=== PATIENT | male | born 1945 | race Caucasian/White ===

== ENCOUNTER 2024-02-23 12:05 | Emergency (ER) | payer MEDICARE, OTHER, SELFPAY ==
[2024-02-23 12:10] VITALS: BP 147/88; PULSE 78; RESP 18; TEMP 36.4; O2SAT 97
--- NOTE | 2024-02-23 12:55 | ED_ITS ---
HPI - Extremity Problem General Chief complaint: Extremity Problem,Nontraumatic Stated complaint: right foot infection Time Seen by Provider: 02/23/24 12:31 History of Present Illness HPI Narrative: 78-year-old male with history of diabetes, hypertension high cholesterol, renal cell carcinoma with partial left nephrectomy in 2007 an AL in 2009 presents emergency department for evaluation for worsening right foot erythema. Patient states approximately a week ago he had worsening CT fungal infection on his feet and start using [id number] fungal medications but states that and on Tuesday he started having a burning of the skin on his foot presented to urgent care and was started on doxycycline b.i.d. along with fluconazole. Patient states he has had 7 doses of the doxycycline but is still having worsening redness of the right foot. Patient states the erythema has spread from the toes and is tracking up the dorsum of of the right foot. Patient also has an area of erythema on the right wrist that he describes as itchy. Related Data Allergies Allergy/AdvReac Type Severity Reaction Status Date / Time Penicillins Allergy Mild Other Verified 02/23/24 12:12 lisinopril Allergy Unknown Anaphylactic Verified 02/23/24 12:12 Shock Review of Systems 2 Review of Systems: All systems reviewed & are unremarkable except as noted in HPI and below Exam 2 Narrative: APPEARANCE: Well appearing, no pain, no distress, well-nourished. HEAD: normocephalic, atraumatic. EYES: PERRLA/EOMI, conjunctivae clear. NOSE: Normal no drainage NECK: Supple. No adenopathy, no masses. RESPIRATORY: Airway patent, respirations nonlabored. Clear to auscultation bilaterally, no rales, rhonchi, wheezing. CARDIOVASCULAR: Regular rate and rhythm without murmurs rubs or gallops. ABDOMINAL: Soft, nontender, nondistended, normal bowel sounds MUSCULOSKELETAL: Moves all extremities. Strength/ROM intact, No edema, No calf tenderness. NEURO: Alert. Cranial nerves II through XII intact. Good gait. Good coordination SKIN: Erythema involving the injury just areas of the right foot and on the dorsum of the right foot Course Vital Signs Vital signs: Vital Signs Temperature 97.6 F 02/23/24 12:10 Pulse Rate 78 02/23/24 12:10 Respiratory Rate 18 02/23/24 12:10 Blood Pressure 147/88 H 02/23/24 12:10 Pulse Oximetry 97 02/23/24 12:10 Oxygen Delivery Room Air 02/23/24 12:10 Temperature 97.6 F 02/23/24 12:10 Pulse Rate 78 02/23/24 12:10 Respiratory Rate 18 02/23/24 12:10 Blood Pressure 147/88 H 02/23/24 12:10 Pulse Oximetry 97 02/23/24 12:10 Oxygen Delivery Room Air 02/23/24 12:10 MDM - Extremity (Nontraumatic) MDM Narrative Medical decision making narrative: 78-year-old male presents emergency department for evaluation for worsening lower extremity erythema and concern for cellulitis on the right foot. Patient is afebrile with no leukocytosis but does have worsening erythema across the dorsum of his right foot. I did discuss admission with the patient and patient was evaluated by the hospitalist. Patient does have a at home that requires assistance and patient declined admission. Patient will be discharged home with Rocephin and Keflex. Patient was encouraged of close follow-up with primary care physician. Differential Diagnosis Differential diagnosis: Likely gout, cellulitis, superficial thrombophlebitis, deep venous thrombosis of upper extremity, lower extremity edema and deep vein thrombosis of lower extremity Lab Data 02/23/24 13:25 02/23/24 13:25 Labs: Lab Results 02/23/24 Range/Units 13:25 WBC 8.9 (4.5-10.0) K/mm3 RBC 4.95 (4.6-6.20) M/mm3 Hgb 15.9 (14.0-18.0) g/dL Hct 47.1 (42.0-52.0) % MCV 95.2 (80-100) fl MCH 32.1 (26-34) pg MCHC 33.8 (32-36) g/dl RDW 13.1 (11.5-14.5) % Plt Count 209 (150-375) k/mm3 MPV 9.7 (7.4-10.4) fl Immature Gran % (Auto) 0.3 (0-0.5) % Neut % (Auto) 65.8 (45.5-73.1) % Lymph % (Auto) 22.6 (18.3-44.2) % [place] % (Auto) 7.4 (2.6-8.5) % Eos % (Auto) 3.3 (0-4.4) % Baso % (Auto) 0.6 (0.2-1.2) % Lymph # (Auto) 2.00 (0.9-3.2) K/mm3 [place] # (Auto) 0.7 H (0.1-0.6) K/mm3 Eos # (Auto) 0.3 (0-0.3) K/mm3 Baso # (Auto) 0.1 (0.0-0.1) K/mm3 Abs Immat Gran (auto) 0.03 (0.00-0.031) K/mm3 Absolute Neuts (auto) 5.8 (1.3-6.7) K/mm3 Absolute Nucleated RBC 0.000 (0.0-0.012) K/mm3 Nucleated RBC % 0.0 (0.0-0.2) % Sodium 138 (137-145) mmol/L Potassium 4.0 (3.4-5.0) mmol/L Chloride 108 H (98-107) mmol/L Carbon Dioxide 22 (22-30) mmol/L Anion Gap 8 (4-12) mmol/L BUN 10 (9-20) mg/dL Creatinine 0.80 (0.7-1.3) mg/dL Estim Creat Clear Calc 80 ml/min Estimated GFR > 60 (59 - ) Glucose 95 (65-110) mg/dL Calcium 8.9 (8.4-10.2) mg/dL Total Bilirubin 0.8 (0.2-1.3) mg/dL AST 37 (17-59) U/L ALT 34 (6-50) U/L Alkaline Phosphatase 78 (38-126) U/L Total Protein 7.0 (6.3-8.2) g/dL Albumin 4.5 (3.5-5.1) g/dL Discharge Plan Discharge Clinical Impression: Cellulitis Patient Disposition: Home, Self-Care Condition: Stable Instructions: Antibiotic Form Additional Instructions: You were offered admission for cellulitis but preferred to be discharged home. You were treated with antibiotics in the emergency department and switched to Keflex for home. Stop taking the clindamycin and switch to Keflex. Have close follow-up with her primary care physician. If you have any worsening symptoms then please call or return to the emergency department. Patient Language: Faroese Prescriptions: New cephalexin 500 mg capsule 500 mg PO Q8H 7 Days Qty: 21 0RF Follow-up/Referrals: PHYSICIAN NOT ON STAFF,NONSTAFF [Non-Staff] -
[2024-02-23] MEDS: ceFAZolin 1 GM/NS 50 ML 1 GM/50 ML BAG IVPB (13:27)
[2024-02-23 13:36] LABS: Basophils Absolute Auto 0.1 K/mm3 (0.0-0.1); Basophils Percent Auto 0.6 % (0.2-1.2); Eosinophils Absolute Auto 0.3 K/mm3 (0-0.3); Eosinophils Percent Auto 3.3 % (0-4.4); Hematocrit 47.1 % (42.0-52.0); Hemoglobin 15.9 g/dL (14.0-18.0); Immature Granulocyte Absolute 0.03 K/mm3 (0.00-0.031); Immature Granulocyte Percent A 0.3 % (0-0.5); Lymphocytes Percent Auto 22.6 % (18.3-44.2); Mean Corpuscular HGB Conc 33.8 g/dl (32-36); Mean Corpuscular Hemoglobin 32.1 pg (26-34); Mean Corpuscular Volume 95.2 fl (80-100); Mean Platelet Volume 9.7 fl (7.4-10.4); Monocytes Absolute Auto 0.7 K/mm3 (0.1-0.6); Monocytes Percent Auto 7.4 % (2.6-8.5); Neutrophils Absolute Auto 5.8 K/mm3 (1.3-6.7); Neutrophils Percent Auto 65.8 % (45.5-73.1); Platelet Count Result 209 k/mm3 (150-375); Red Blood Count 4.95 M/mm3 (4.6-6.20); Red Cell Distribution Width 13.1 % (11.5-14.5); White Blood Count 8.9 K/mm3 (4.5-10.0)
[2024-02-23 13:47] LABS: Alanine Aminotransferase 34 U/L (6-50); Albumin Level 4.5 g/dL (3.5-5.1); Alkaline Phosphatase 78 U/L (38-126); Anion Gap 8 mmol/L (4-12); Aspartate Amino Transferase 37 U/L (17-59); Bilirubin,Total 0.8 mg/dL (0.2-1.3); Blood Urea Nitrogen 10 mg/dL (9-20); Calcium 8.9 mg/dL (8.4-10.2); Carbon Dioxide 22 mmol/L (22-30); Chloride 108 mmol/L (98-107); Estimated CRCL calculation 80 ml/min; Estimated Glomerular Filt Rate > 60; Glucose 95 mg/dL (65-110); Sodium 138 mmol/L (137-145)
--- NOTE | 2024-02-23 14:56 | PM.IMHP ---
H&P: HPI History of Present Illness Date/Time: 02/23/24 14:56 Chief Complaint: RIght foot erythema/edema. Narrative: Gurdeep Santiago is a 78 y/o male with pmh prediabetes presenting with 4-5 days of rle erythema. Initially had tinea pedis, started otc, began having erythema the following day. Had been breaking in a new pair of shoes, too small toe box with a resulting small blister at the medial right great toe. Erythema started and seen at urgent care, started on doxy. Symptoms have not improved in 4 days and are worsened. He denies fevers or chills. He presented for evaluation. On evaluation labwork is grossly unremarkable. He received a dose of ancef. A few hours later he states he is feeling improved. He states he cannot stay in the hospital overnight d/t home responsibilities. We discussed having failed o/p abx, admission would be reasonable. He prefers to explore other options. Review of Systems Review of Systems: Denies additional complaints concerns other than as listed above across 12 systems. Meds Home Medications and Allergies Home Medications ?Medication ?Instructions ?Recorded ?Confirmed ?Type cephalexin 500 mg capsule 500 mg PO Q8H 7 days #21 caps 02/23/24 Rx Allergies Allergy/AdvReac Type Severity Reaction Status Date / Time Penicillins Allergy Mild Other Verified 02/23/24 12:12 lisinopril Allergy Unknown Anaphylactic Verified 02/23/24 12:12 Shock Vital Signs Vital Signs - 24 hr 02/23/24 12:10 Temperature 97.6 F Pulse Rate 78 Respiratory Rate 18 Blood Pressure 147/88 H Pulse Oximetry 97 Oxygen Delivery Room Air Exam Narrative: GENERAL APPEARANCE: Appears to be in no acute distress. HEAD: normocephalic atraumatic EYES: PERRL, EOMI. Vision grossly intact. ENT: Hearing grossly intact, no nasal discharge NECK: Neck supple, trachea midline. CARDIAC: Normal S1/S2. Rhythm is regular. No murmurs, rubs, or gallops. No cyanosis or pallor. Extremities are warm and well perfused. LUNGS: Clear to auscultation without rales, rhonchi, wheezing or diminished breath sounds. Respirations even and unlabored. ABDOMEN: BS positive x 4 quadrants. Soft, nondistended, nontender. No guarding or rebound. MSK: No joint tenderness/swelling, fair strength in all extremities. PERIPHERAL VASCULAR: Peripheral pulses palpable. Normal perfusion, cap refill <2 seconds. No edema. NEURO: Follows commands. No focal deficits. SKIN: RIght foot with erythema of the dorsum extending to midfoot, medial great toe with small blister, no drainage. PSYCH: Stable, no paranoia or delusional thinking. H&P: Results Labs Labs: Short CBC 02/23/24 Range/Units 13:25 WBC 8.9 (4.5-10.0) K/mm3 Hgb 15.9 (14.0-18.0) g/dL Hct 47.1 (42.0-52.0) % Plt Count 209 (150-375) k/mm3 BMP 02/23/24 13:25 Sodium 138 Potassium 4.0 Chloride 108 H Carbon Dioxide 22 BUN 10 Creatinine 0.80 Glucose 95 Calcium 8.9 Liver Function 02/23/24 Range/Units 13:25 Total Bilirubin 0.8 (0.2-1.3) mg/dL AST 37 (17-59) U/L ALT 34 (6-50) U/L Alkaline Phosphatase 78 (38-126) U/L Albumin 4.5 (3.5-5.1) g/dL Assessment and Plan Assessment and plan (1) Cellulitis: Code(s): L03.90 - Cellulitis, unspecified Status: Acute Assessment and Plan: - Discussed alternatives to admission. Patient would like to trial o/p abx with change of therapy. Have discussed with ED provider, will receive 1gm rocephin IV - rx for keflex - close f/u with outpatient primary if possible. - Discussed with patient to return for any worsening or failure of treatment quickly. Discussed risks of discharge. Hospitalist [facility] Advance Care Plan I have confirmed that the patient's Advanced Care Plan is present, code status is documented, or surrogate decision maker is listed in patient medical record.: Yes Medication Reconciliation I have utilized all available resources to obtain, update and review the patients current medications (includes all prescriptions, OTC, herbals, cannabis, and nutritional supplements).: Yes
== END 2024-02-23 15:18 | disposition home or self-care (01) ==
PROVIDERS: Emergency Provider Emergency Medicine
DX: L03.115 Cellulitis of right lower limb (principal); E11.9 Type 2 diabetes mellitus without complications; I10 Essential (primary) hypertension; E78.5 Hyperlipidemia, unspecified; Z85.528 Personal history of other malignant neoplasm of kidney; I25.2 Old myocardial infarction
CPT/HCPCS: 36415; 80053; 85025; 87040; 96365; 96366; 99284; J0690

== ENCOUNTER 2024-02-24 13:01 | Observation (INO) | payer MEDICARE, OTHER, SELFPAY ==
--- NOTE | ~2024-02-24 | US_ITS ---
EXAMINATION:US venous doppler LE RT INDICATION:Calf pain. Cellulitis. TECHNIQUE: Multiple grayscale, color flow and Doppler images of the right lower extremity deep venous systems were obtained and reviewed. COMPARISON:06/09/2013 FINDINGS: The common femoral, superficial femoral and popliteal veins demonstrate normal respiratory variation, augmentation and compressibility. Color flow is also seen within the posterior tibial, pe roneal, greater saphenous and profunda veins. IMPRESSION: 1: No lower extremity deep venous thrombosis. Reviewed, dictated and finalized at location B. 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
[2024-02-24 13:07] VITALS: BP 150/82; PULSE 89; RESP 16; TEMP 36.5; O2SAT 96
[2024-02-24 13:33] LABS: Basophils Absolute Auto 0.1 K/mm3 (0.0-0.1); Basophils Percent Auto 0.7 % (0.2-1.2); Eosinophils Absolute Auto 0.1 K/mm3 (0-0.3); Eosinophils Percent Auto 1.5 % (0-4.4); Hemoglobin 15.2 g/dL (14.0-18.0); Immature Granulocyte Absolute 0.03 K/mm3 (0.00-0.031); Immature Granulocyte Percent A 0.3 % (0-0.5); Lymphocytes Absolute Auto 1.95 K/mm3 (0.9-3.2); Lymphocytes Percent Auto 21.5 % (18.3-44.2); Mean Corpuscular HGB Conc 33.8 g/dl (32-36); Mean Corpuscular Hemoglobin 31.9 pg (26-34); Mean Corpuscular Volume 94.5 fl (80-100); Mean Platelet Volume 9.4 fl (7.4-10.4); Monocytes Absolute Auto 0.5 K/mm3 (0.1-0.6); Monocytes Percent Auto 5.3 % (2.6-8.5); Neutrophils Absolute Auto 6.4 K/mm3 (1.3-6.7); Neutrophils Percent Auto 70.7 % (45.5-73.1); Platelet Count Result 190 k/mm3 (150-375); Red Blood Count 4.76 M/mm3 (4.6-6.20); Red Cell Distribution Width 13.1 % (11.5-14.5); White Blood Count 9.1 K/mm3 (4.5-10.0)
[2024-02-24 13:50] LABS: Alanine Aminotransferase 31 U/L (6-50); Albumin Level 4.1 g/dL (3.5-5.1); Alkaline Phosphatase 74 U/L (38-126); Anion Gap 5 mmol/L (4-12); Aspartate Amino Transferase 35 U/L (17-59); Bilirubin,Total 0.7 mg/dL (0.2-1.3); Blood Urea Nitrogen 9 mg/dL (9-20); Calcium 9.2 mg/dL (8.4-10.2); Carbon Dioxide 23 mmol/L (22-30); Chloride 109 mmol/L (98-107); Estimated CRCL calculation 73 ml/min; Estimated Glomerular Filt Rate > 60; Glucose 131 mg/dL (65-110); Potassium 3.9 mmol/L (3.4-5.0); Sodium 137 mmol/L (137-145)
--- NOTE | 2024-02-24 13:51 | ED_ITS ---
HPI - General Adult General Chief complaint: Extremity Problem,Nontraumatic Stated complaint: right calf discomfort/cellulitis Time Seen by Provider: 02/24/24 13:08 History of Present Illness HPI narrative: 78-year-old male returning to the emergency department for evaluation his right lower extremity cellulitis. Patient had initially been on doxycycline for multiple days and presented to the emergency department yesterday for evaluation for worsening lower extremity erythema. Patient was initially offered admission and patient was accepted by the hospitalist but then patient stated he needed to go home. Patient was treated with dose of Rocephin and switched to Keflex. Patient returned to the emergency department to be admitted. Patient states he has had worsening right calf pain. Related Data Home Medications ?Medication ?Instructions ?Recorded ?Confirmed ?Last Taken ?Type albuterol sulfate 90 mcg/actuation inhalation 02/24/24 Unknown History aerosol inhaler aspirin 81 mg tablet,delayed 81 mg PO DAILY 02/24/24 02/24/24 02/23/24 History release (Adult Aspirin Regimen) cetirizine 10 mg tablet (24Hour 10 mg PO DAILY PRN seasonal 02/24/24 02/24/24 02/23/24 History Allergy) allergies doxycycline hyclate 100 mg capsule mg 02/24/24 Unknown History ergocalciferol (vitamin D2) 1,250 02/24/24 02/23/24 History mcg (50,000 unit) capsule ketoconazole 2 % topical cream applic topical 02/24/24 02/24/24 History losartan 25 mg tablet mg 02/24/24 02/23/24 History methocarbamol 750 mg tablet mg 02/24/24 Unknown History rosuvastatin 20 mg tablet mg 02/24/24 02/23/24 History Allergies Allergy/AdvReac Type Severity Reaction Status Date / Time Penicillins Allergy Mild Other Verified 02/23/24 12:12 lisinopril Allergy Unknown Anaphylactic Verified 02/23/24 12:12 Shock Review of Systems 2 Review of Systems: All systems reviewed & are unremarkable except as noted in HPI and below PMFSH Social History Social History Smoking status: Former smoker Tobacco type: cigarettes Smoking end date: 03/07/98 Alcohol intake: current Substance use: never Do You Feel Safe in your Home?: Yes Lack of Transportation: No Lack of Food: Never True Current Housing: I Have Housing Concerned About Future Housing: No Difficulty Paying Gas/Electric Bills: No Difficulty Paying for Meds: No Currently Unemployed: No Education: Decline to Answer Difficulty w/ Childcare or Family Care: No Spiritual care concerns: No Exam 2 Narrative: APPEARANCE: Well appearing, no pain, no distress, well-nourished. HEAD: normocephalic, atraumatic. EYES: PERRLA/EOMI, conjunctivae clear. NOSE: Normal no drainage EARS:TMS clear with good light reflex. THROAT: Pharynx clear, no exudate. NECK: Supple. No adenopathy, no masses. RESPIRATORY: Airway patent, respirations nonlabored. Clear to auscultation bilaterally, no rales, rhonchi, wheezing. CARDIOVASCULAR: Regular rate and rhythm without murmurs rubs or gallops. ABDOMINAL: Soft, nontender, nondistended, normal bowel sounds MUSCULOSKELETAL: Moves all extremities. Strength/ROM intact, No edema, No calf tenderness. NEURO: Alert. Cranial nerves II through XII intact. SKIN: Erythema cross dorsum of right foot concerning for cellulitis Course Vital Signs Vital signs: Vital Signs Temperature 97.7 F 02/24/24 13:07 Pulse Rate 89 02/24/24 13:07 Respiratory Rate 16 02/24/24 13:07 Blood Pressure 150/82 H 02/24/24 13:07 Pulse Oximetry 96 02/24/24 13:07 Oxygen Delivery Room Air 02/24/24 13:07 Temperature 99.0 F 02/24/24 20:06 Pulse Rate 61 02/24/24 20:06 Respiratory Rate 20 02/24/24 20:06 Blood Pressure 134/67 02/24/24 20:06 Pulse Oximetry 97 02/24/24 20:06 Oxygen Delivery Room Air 02/24/24 13:07 Medical Decision Making [facility] Narrative Medical decision making narrative: 78-year-old male presents emergency department for evaluation for persistent cellulitis. Patient is afebrile with no leukocytosis and a hemoglobin of 15.2. No acute abnormalities on the patient's CMP. Ultrasound was negative for DVT. Patient was admitted for suspected cellulitis. Case was discussed with hospitalist patient was comfortable the plan for admission. Differential Diagnosis Differential Diagnosis: Allergic reaction, cellulitis, DVT, fungal infection Vital Signs Vital Signs: Vital Signs Temperature 97.7 F 02/24/24 13:07 Pulse Rate 89 02/24/24 13:07 Respiratory Rate 16 02/24/24 13:07 Blood Pressure 150/82 H 02/24/24 13:07 Pulse Oximetry 96 02/24/24 13:07 Oxygen Delivery Room Air 02/24/24 13:07 Temperature 99.0 F 02/24/24 20:06 Pulse Rate 61 02/24/24 20:06 Respiratory Rate 20 02/24/24 20:06 Blood Pressure 134/67 02/24/24 20:06 Pulse Oximetry 97 02/24/24 20:06 Oxygen Delivery Room Air 02/24/24 13:07 Lab Data Lab results reviewed: Yes I reviewed the patient's lab results. 02/24/24 13:25 02/24/24 13:25 Labs: Lab Results 02/24/24 Range/Units 13:25 WBC 9.1 (4.5-10.0) K/mm3 RBC 4.76 (4.6-6.20) M/mm3 Hgb 15.2 (14.0-18.0) g/dL Hct 45.0 (42.0-52.0) % MCV 94.5 (80-100) fl MCH 31.9 (26-34) pg MCHC 33.8 (32-36) g/dl RDW 13.1 (11.5-14.5) % Plt Count 190 (150-375) k/mm3 MPV 9.4 (7.4-10.4) fl Immature Gran % (Auto) 0.3 (0-0.5) % Neut % (Auto) 70.7 (45.5-73.1) % Lymph % (Auto) 21.5 (18.3-44.2) % [place] % (Auto) 5.3 (2.6-8.5) % Eos % (Auto) 1.5 (0-4.4) % Baso % (Auto) 0.7 (0.2-1.2) % Lymph # (Auto) 1.95 (0.9-3.2) K/mm3 [place] # (Auto) 0.5 (0.1-0.6) K/mm3 Eos # (Auto) 0.1 (0-0.3) K/mm3 Baso # (Auto) 0.1 (0.0-0.1) K/mm3 Abs Immat Gran (auto) 0.03 (0.00-0.031) K/mm3 Absolute Neuts (auto) 6.4 (1.3-6.7) K/mm3 Absolute Nucleated RBC 0.000 (0.0-0.012) K/mm3 Nucleated RBC % 0.0 (0.0-0.2) % Sodium 137 (137-145) mmol/L Potassium 3.9 (3.4-5.0) mmol/L Chloride 109 H (98-107) mmol/L Carbon Dioxide 23 (22-30) mmol/L Anion Gap 5 (4-12) mmol/L BUN 9 (9-20) mg/dL Creatinine 0.90 (0.7-1.3) mg/dL Estim Creat Clear Calc 73 ml/min Estimated GFR > 60 (59 - ) Glucose 131 H (65-110) mg/dL Calcium 9.2 (8.4-10.2) mg/dL Total Bilirubin 0.7 (0.2-1.3) mg/dL AST 35 (17-59) U/L ALT 31 (6-50) U/L Alkaline Phosphatase 74 (38-126) U/L Total Protein 7.0 (6.3-8.2) g/dL Albumin 4.1 (3.5-5.1) g/dL Discharge Plan Discharge Clinical Impression: Cellulitis Patient Disposition: Still a Patient Condition: Stable
[2024-02-24] MEDS: ceFAZolin 1 GM/NS 50 ML 1 GM/50 ML BAG IVPB ×2 (14:26→21:27)
[2024-02-24 15:10] VITALS: BMI 34.7
--- NOTE | 2024-02-24 15:10 | PC.NURSE ---
This patient, Gurdeep Santiago, was admitted to Medical Room 248-. Patient/family oriented to hospital policies and general routines including ID bracelet, bed and alarms, visiting hours, pain management, procedures, bathroom and other care routines, personal items, smoking policy, room service/diet, and visiting hours. Information on how to activate the Rapid Response Team has been discussed. Patient/Family are encouraged to report perceived risks to care and to ask questions if they do not understand what they are told or what they should do.
--- NOTE | 2024-02-24 15:16 | P.HP_ITS ---
H&P: HPI History of Present Illness Date/Time: 02/24/24 15:16 Chief Complaint: Cellulitis Narrative: 78-year-old male with no significant past medical history complaints of right lower extremity cellulitis who failed outpatient doxycycline. Patient presented to the ED yesterday with erythema to his foot he states that he thought was due to new pair of shoes rubbing on him however and has not improved so he had went to Urgent Care was started on doxycycline about 5 days ago. Yesterday in the ED they started him on Ancef and plan was to admit him however he does say he need to go home and be with his so he was discharged on Keflex. He states that was worse this morning so he came back to the hospital. In the ED he was given Rocephin. Patient states in addition to the new issues he was also using antifungal liquid on his toenails which she states because acute pain right away to his big toe and did not put on any more toes. It also appears to have a small patch of erythema on his right wrist and dorsal side a left hand. Patient's erythema is self-limiting to his dorsal side of his foot, it does not extend up into the ankle or to the plantar side of the foot. Review of Systems Review of Systems: 12 systems were reviewed and are negativ e except for as per HPI. [facility] Social History Social History Smoking status: Former smoker Tobacco type: cigarettes Smoking end date: 03/07/98 Alcohol intake: current Substance use: never Do You Feel Safe in your Home?: Yes Lack of Transportation: No Lack of Food: Never True Current Housing: I Have Housing Concerned About Future Housing: No Difficulty Paying Gas/Electric Bills: No Difficulty Paying for Meds: No Currently Unemployed: No Education: Decline to Answer Difficulty w/ Childcare or Family Care: No Spiritual care concerns: No Meds Home Medications and Allergies Home Medications ?Medication ?Instructions ?Recorded ?Confirmed ?Type cephalexin 500 mg capsule 500 mg PO Q8H 7 days #21 caps 02/23/24 02/24/24 Rx albuterol sulfate 90 mcg/actuation inhalation 02/24/24 History aerosol inhaler aspirin 81 mg tablet,delayed 81 mg PO DAILY 02/24/24 02/24/24 History release (Adult Aspirin Regimen) cetirizine 10 mg tablet (24Hour 10 mg PO DAILY PRN seasonal 02/24/24 02/24/24 History Allergy) allergies doxycycline hyclate 100 mg capsule mg 02/24/24 History ergocalciferol (vitamin D2) 1,250 02/24/24 History mcg (50,000 unit) capsule ketoconazole 2 % topical cream applic topical 02/24/24 History losartan 25 mg tablet mg 02/24/24 History methocarbamol 750 mg tablet mg 02/24/24 History rosuvastatin 20 mg tablet mg 02/24/24 History Allergies Allergy/AdvReac Type Severity Reaction Status Date / Time Penicillins Allergy Mild Other Verified 02/23/24 12:12 lisinopril Allergy Unknown Anaphylactic Verified 02/23/24 12:12 Shock Vital Signs Vital Signs - 24 hr 02/24/24 13:07 Temperature 97.7 F Pulse Rate 89 Respiratory Rate 16 Blood Pressure 150/82 H Pulse Oximetry 96 Oxygen Delivery Room Air Exam Narrative: General: well appearing, appears stated age. HEENT: normocephalic, atraumatic. Mucous membranes moist. EOMI, PERRLA, bilateral sclera anicteric, no conjunctival injection. Neck supple without JVD, lymphadenopathy, or bruit. Respiratory: clear to ascultation bilaterally. No rales/rhonic/wheezes. Cardiovascular: Regular rate and rhythm, normal S1-S2 upon ascultation. No murmurs, rubs, or clicks. PMI is nondisplaced, capillary refill less than 3 second. Abdomen: Soft, round, no pulsatile masses, nondistended and nontender. No rebound, no guarding. No CVA tenderness, no hepatosplenomegaly. Bowel sounds present to all four quadrants. No high pitch or tinkling sounds, resonant to percussion. Extremities: No cyanosis, clubbing, or edema present. Pulses are palpable 2/2. Active ROM to all four extremities. Right wrist with small area of erythema and pruritus Right foot erythema is self-limiting to his dorsal side of his foot, it does not extend up into the ankle or to the plantar side of the foot. There are blisters in between the up big toe and 2nd toe, Neuro: Alert and orientated x 4. PERRLA. Cranial nerves 2-12 intact without focal deficit. Skin: Warm, dry, and intact, without rash, erythema, or lesion. Psych: pleasant, cooperative, normal speech, normal affect, no hallucinations, no dysarthia H&P: Results Labs Labs: Short CBC 02/24/24 Range/Units 13:25 WBC 9.1 (4.5-10.0) K/mm3 Hgb 15.2 (14.0-18.0) g/dL Hct 45.0 (42.0-52.0) % Plt Count 190 (150-375) k/mm3 BMP 02/24/24 13:25 Sodium 137 Potassium 3.9 Chloride 109 H Carbon Dioxide 23 BUN 9 Creatinine 0.90 Glucose 131 H Calcium 9.2 Liver Function 02/24/24 Range/Units 13:25 Total Bilirubin 0.7 (0.2-1.3) mg/dL AST 35 (17-59) U/L ALT 31 (6-50) U/L Alkaline Phosphatase 74 (38-126) U/L Albumin 4.1 (3.5-5.1) g/dL Assessment and Plan Assessment and plan (1) Cellulitis: Code(s): L03.90 - Cellulitis, unspecified Status: Inactive Assessment and Plan: Without abscess or leukocytosis Venous Doppler negative IV Rocephin given in ED On exam erythema more looks like a chemical burn with blisters likely due to the antifungal liquid he a placed on his toenails Bacitracin b.i.d. Repeat labs in a.m. Patient will likely be medically stable for discharge tomorrow Quality VTE Prophylaxis VTE prophylaxis: mechanical ordered and pharmacologic ordered Waiting for nursing complete med rec Hospitalist [facility] Advance Care Plan I have confirmed that the patient's Advanced Care Plan is present, code status is documented, or surrogate decision maker is listed in patient medical record.: Yes
[2024-02-24 20:00] VITALS: PULSE 61; RESP 20; O2SAT 97
[2024-02-24 20:06] VITALS: BP 134/67; PULSE 61; RESP 20; TEMP 37.2; O2SAT 97
[2024-02-24] MEDS: ENOXAPARIN 30 MG/0.3 ML SYRINGE SUB-Q (22:49)
[2024-02-25 04:37] VITALS: BP 139/68; PULSE 63; RESP 16; TEMP 36.4; O2SAT 96
[2024-02-25 05:23] LABS: Basophils Absolute Auto 0.1 K/mm3 (0.0-0.1); Basophils Percent Auto 0.9 % (0.2-1.2); Eosinophils Absolute Auto 0.4 K/mm3 (0-0.3); Eosinophils Percent Auto 4.3 % (0-4.4); Hematocrit 42.6 % (42.0-52.0); Hemoglobin 13.9 g/dL (14.0-18.0); Immature Granulocyte Absolute 0.03 K/mm3 (0.00-0.031); Immature Granulocyte Percent A 0.4 % (0-0.5); Lymphocytes Absolute Auto 2.83 K/mm3 (0.9-3.2); Lymphocytes Percent Auto 34.8 % (18.3-44.2); Mean Corpuscular HGB Conc 32.6 g/dl (32-36); Mean Corpuscular Hemoglobin 31.2 pg (26-34); Mean Corpuscular Volume 95.5 fl (80-100); Mean Platelet Volume 9.3 fl (7.4-10.4); Monocytes Absolute Auto 0.7 K/mm3 (0.1-0.6); Monocytes Percent Auto 8.5 % (2.6-8.5); Neutrophils Absolute Auto 4.2 K/mm3 (1.3-6.7); Neutrophils Percent Auto 51.1 % (45.5-73.1); Platelet Count Result 170 k/mm3 (150-375); Red Blood Count 4.46 M/mm3 (4.6-6.20); Red Cell Distribution Width 13.2 % (11.5-14.5); White Blood Count 8.1 K/mm3 (4.5-10.0)
[2024-02-25 05:33] LABS: Anion Gap 2 mmol/L (4-12); Blood Urea Nitrogen 12 mg/dL (9-20); Calcium 8.9 mg/dL (8.4-10.2); Carbon Dioxide 26 mmol/L (22-30); Chloride 108 mmol/L (98-107); Estimated CRCL calculation 85 ml/min; Estimated Glomerular Filt Rate > 60; Glucose 106 mg/dL (65-110); Potassium 3.7 mmol/L (3.4-5.0); Sodium 136 mmol/L (137-145)
[2024-02-25] MEDS: ASPIRIN 81 MG ENTERIC TABLET PO (08:36)
[2024-02-25] MEDS: BACITRACIN OINTMENT 15 GM TUBE 1 APPLIC TOPICAL (08:36)
--- NOTE | 2024-02-25 13:59 | P.DS_ITS ---
DS: Admitting Diagnosis Discharge Date 02/25/2024 Admitting Diagnosis Cellulitis/Rash LLE DS: Discharge Diagnosis Discharge Diagnosis (1) Cellulitis: Code(s): L03.90 - Cellulitis, unspecified Status: Acute Assessment and Plan: * Prescribed oral Bactrim and prednisone for possible systemic rash * Instructed to discontinue prednisone of redness and swelling worsen * Elevate leg when at rest * Limit activity until improving (2) Rash and nonspecific skin eruption: Code(s): R21 - Rash and other nonspecific skin eruption Status: Acute Assessment and Plan: SEE ABOVE PLAN Plan Disposition: Discharge to home DS: Summary Hospital Course Reason for hospitalization: Cellulitis/rash LLE Hospital Course: Patient was a 78-year-old male who presented to the emergency department with complaints left lower extremity redness patient reports he was seen at the urgent care and initially started on doxycycline for possible cellulitis however did not have any improvement and came to the emergency department they initially gave him 1 dose of Ancef in the emergency department however patient stated he could not stay and was discharged home on oral Keflex. Patient then returned the following day PET taking his Keflex for 1 day reporting still no improvement. patient denied any real pain, itching or severe swelling. Patient with normal WBC, denied any fever or chills or cold-like symptoms. he was admitted to the medical unit for IV antibiotics since he appeared to fail oral antibiotic outpatient. upon evaluation patient with scant swelling big toe mild erythema but appeared more like a maculopapular rash patient also had a small patch of erythema to the right wrist dorsal side of the left hand b ut still possibly concerning for cellulitis. Patient did report he also had been using antifungal cream due to history of athlete's foot. Decided to trial prednisone for inflammatory and possible systemic rash as well continue antibiotic. blood cultures with no growth to date. Patient did report it began after he had recently purchased new gym shoes but unsure if this is a possible cause denied any trauma to area. patient a discharge no acute distress denied any chest pain, shortness of breath, nausea, vomiting, fever, chills normal WBC and mild improvement to left lower extremity. Patient was discharged on oral Bactrim as well as oral prednisone the patient was instructed that if redness worsened to discontinue the prednisone and continue only with the antibiotics. Patient also instructed to limit activity and weight-bearing status on foot until improving and elevate when at rest. patient acknowledged and agreed with discharge plan patient was discharged home. Status at Discharge Functional status at discharge: independent ambulation Overall status at discharge: patient is progressing back to baseline Time Spent with Patient Time attestation: Total time spent providing and/or coordinating discharge services: Time spent: Greater than 30 minutes Exam Narrative: * GENERAL: Alert and oriented x 3 pleasant male. No acute distress. * EYES: PERRLA. * HEENT: Moist mucous membranes. * LUNGS: Clear to auscultation bilaterally. No accessory muscle use. * CARDIOVASCULAR: Regular rate and rhythm. No murmur. No JVD. S1-S2 * ABDOMEN: Soft, non tenderness and non-distended. No palpable masses. * EXTREMITIES: No edema. Non-tender * SKIN: LLE erythema/rash * NEUROLOGIC: No focal neurological deficits. CN II-XII grossly intact * PSYCHIATRIC: Appropriate mood and affect. Good judgement and insight. DS: Data Data Completed and Pending Labs on day of discharge: Labs from last 24 hours 02/25/24 04:59 WBC 8.1 RBC 4.46 L Hgb 13.9 L Hct 42.6 MCV 95.5 MCH 31.2 MCHC 32.6 RDW 13.2 Plt Count 170 MPV 9.3 Immature Gran % (Auto) 0.4 Neut % (Auto) 51.1 Lymph % (Auto) 34.8 Rich % (Auto) 8.5 Eos % (Auto) 4.3 Baso % (Auto) 0.9 Lymph # (Auto) 2.83 Rich # (Auto) 0.7 H Eos # (Auto) 0.4 H Baso # (Auto) 0.1 Abs Immat Gran (auto) 0.03 Absolute Neuts (auto) 4.2 Absolute Nucleated RBC 0.000 Nucleated RBC % 0.0 Sodium 136 L Potassium 3.7 Chloride 108 H Carbon Dioxide 26 Anion Gap 2 L BUN 12 Creatinine 0.80 Estim Creat Clear Calc 85 Estimated GFR > 60 Glucose 106 Calcium 8.9 Imaging Radiologist's impression: EXAMINATION:US venous doppler LE RT INDICATION:Calf pain. Cellulitis. TECHNIQUE: Multiple grayscale, color flow and Doppler images of the right lower extremity deep venous systems were obtained and reviewed. COMPARISON:06/09/2013 FINDINGS: The common femoral, superficial femoral and popliteal veins demonstrate normal respiratory variation, augmentation and compressibility. Color flow is also seen within the posterior tibial, peroneal, greater saphenous and profunda veins. IMPRESSION: 1: No lower extremity deep venous thrombosis. Discharge Plan Discharge Attending physician on discharge: Km Garces Discharging Clinician: Raisa Espitia Anticipated Discharge Date/Time: 02/25/24 13:40 Patient Disposition: Home, Self-Care Activity: may shower and as tolerated Diet: regular Discharge Instructions: You are being discharged home after treatment for cellulitis of the left lower extremity. * I have prescribed an oral steroid and oral antibiotic please take as prescribed if symptoms persist after 7-10 days of treatment please seek medical attention. * Monitor for flu like symptoms such as fever or chills worsening redness or swelling at the site if persistent seek medical attention * Please keep foot elevated when at rest and when possible and attempt to stay off foot as much as possible while healing. How can you care for yourself at home? ? Keep track of any new symptoms or changes in your symptoms. ? Rest until you feel better. ? Be safe with medicines. Take your medicines exactly as prescribed. Call your doctor if you think you are having a problem with your medicine. ? Do not drive after taking a prescription pain medicine. ? Ensure to follow-up with primary care physician as indicated and provide updated medication list provided to you at discharge. When should you call for help? Call 911 anytime you think you may need emergency care. For example, call if: ? You passed out (lost consciousness). Call your doctor now or seek immediate medical care if: ? You have new symptoms like fever, difficulty breathing, Chest pain, vomiting, or rash. ? You have new or different pain. ? You are confused and are having trouble thinking clearly. ? Your symptoms are getting worse. Watch closely for changes in your health, and be sure to contact your doctor if: ? You do not get better as expected. Patient Instructions: Antibiotic Form, Cellulitis (ED) Patient Language: Bengali Stand Alone Forms: General Discharge Information Follow-up/Referrals: UNKNOWN,DOCTOR [Primary Care Provider] - 4 Weeks Discharge Medications: New bacitracin 500 unit/gram Ointment 1 applic topical Q12HR Qty: 1 0RF sulfamethoxazole-trimethoprim 800-160 mg tablet 1 tablet PO Q12H Qty: 14 0RF prednisone 20 mg tablet 40 mg PO DAILY Qty: 10 0RF Continued methocarbamol 750 mg tablet Patient Comments: prn losartan 25 mg tablet ergocalciferol (vitamin D2) 1,250 mcg (50,000 unit) capsule albuterol sulfate 90 mcg/actuation HFA aerosol inhaler INHALATION Patient Comments: prn rosuvastatin 20 mg tablet aspirin [Adult Aspirin Regimen] 81 mg tablet,delayed release (DR/EC) 81 mg PO DAILY cetirizine [24Hour Allergy] 10 mg tablet 10 mg PO DAILY PRN (Reason: seasonal allergies) Thiells Advanced AREDS2 250-137.5-12.5 mg capsule 1 tablet PO BID Rx Instructions: administer with AM and PM meals Discontinued cephalexin 500 mg capsule 500 mg PO Q8H 7 Days Qty: 21 0RF doxycycline hyclate 100 mg capsule ketoconazole 2 % cream TOPICAL Date of admission: 02/24/24 14:02 Primary Care Provider: UNKNOWN,DOCTOR Admitting Provider: Hernan Harper Attending physician on admission: Raisa Espitia Condition: Stable Quality -Patient's previous records reviewed on admission -ER notes reviewed in detail on admission -discussed all findings and current treatment plan with patient/Family/POA -Consultations reviewed for recommendations -Patient's disposition for safe discharge discussed with residential case manager Dictation performed by eMaze[employer] direct speech recognition software, therefore end touching machine operator variants and typographical errors may occur. Hospitalist MIPS Heart Failure (Exclusion) Patient has history of Heart Transplant or Left Ventricular Assistive Device?: No IF YES, STOP HERE Heart Failure (Qualifier) Patient has current or prior documentation of LVEF less than or equal to 40%, or mod/servere depressed LVSF?: No IF NO, STOP HERE
[2024-02-25] MEDS: methylPREDNISolone SOD SUCC 125 MG VIAL 60 MG IV PUSH (14:11)
== END 2024-02-25 15:08 | disposition home or self-care (01) ==
LOC: ANHED 14:23 → ANH2MED 16:11
PROVIDERS: Nurse Practitioner Gerontology; Admitting Provider General Practice; Emergency Provider Emergency Medicine; Visit Provider Nurse Practitioner Family
DX: L03.115 Cellulitis of right lower limb (principal); R21 Rash and other nonspecific skin eruption; B35.3 Tinea pedis; Z79.51 Long term (current) use of inhaled steroids; Z79.82 Long term (current) use of aspirin; Z87.891 Personal history of nicotine dependence; Z88.0 Allergy status to penicillin
CPT/HCPCS: 36415; 80048; 80053; 85025; 93971; 96365; 96372; 96375; 99285; A9270; G0378; J0690; J1650; J2919

== ENCOUNTER 2024-07-04 00:51 | Day surgery (SDC) | payer MEDICARE, OTHER, SELFPAY ==
[2024-06-21 14:24] VITALS: BMI 31.6
--- OUTSIDE RECORDS SUMMARY | 2024-07-04 00:53 | XMS_ITS | Encounter Summary ---
Author Organization [facility] Address 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 Gender Identity Male 11/16/2023 1:33 PM CDT Sexual Orientation Straight 11/16/2023 1: 33 PM CDT documented as of this encounter Plan of Treatment Upcoming Encounters Date Type Department Care Team (Late st Contact Info) Description 11/15/2024 9:20 AM CDT Appointment [facility] Laboratory Services [facility] [address], [address] [place] [address] Zahira Scott MD [address] [place] [address] 11/15/2024 10:20 AM CDT Office Visit [facility] Oncology and Hematology [facility] [address] [place] [address] Zahira Scott MD [address] [place] [address] documented as of this encounter Procedures Procedure Name Priority Date/Time Associated Diagnosis Comments CT ABDOMEN PELVIS W CONTRAST Timed Study 08/01/2008 11:01 AM CDT POC CREATININE Routine 08/01/2008 10:22 AM CDT COMPREHENSIVE METABOLIC PANEL Stat 08/01/2008 10:06 AM CDT documented in this encounter Results * CT ABDOMEN PELVIS W CONTRAST (08/01/2008 11:01 AM CDT) Anatomical Region Laterality Modality Abdomen Other 08/01/2008 11:0 1 AM CDT Narrative 08/02/2008 8:28 AM CDT [facility] [address], [place] [address] Admit Date: 08/01/2008 KRYSTAL SANTIAGO Sex: M Admit Prov: Osiel LARSON Date: 1945 Primary Care Prov: SARA MARTINEZ CMRN: [id number] Room: [facility] SSN: [id number] IMAGING SERVICES Ordering Prov: N/A Accession Number: [id number] Interpretation CT ABDOMEN AND PELVIS WITH IV CONTRAST 08/01/2008 Clinical Indication: 62-year-old man with history of renal mass. Technique: Helical scanning of the abdomen and pelvis was performed with oral and intravenous contrast. Comparisons: None available. Findings: Images through the lung bases demonstrate dependent atelectasis bilaterally. There is a calcified pulmonary nodule within the left lower lobe. The liver is unremarkable in appearance without intrahepatic biliary ductal dilatation. The gallbladder is present. There are a few punctate calcifications within the spleen. The pancreas and adrenal glands are unremarkable. Both kidneys enhance symmetrically. There is mild fullness of the renal collecting system bilaterally. There is a low attenuation collection along the anterior aspect of the left kidney that measures 1 x 2.8 cm (image 38, series 2). This may represent a small perinephric fluid collection/hematoma. The collection measures 41 Hounsfield units, which is more than would be expected for simple fluid. There are postsurgical changes associated with partial left nephrectomy. There is some low attenuation within the lower pole of the left kidney at the operative site (image 41, series 2) which is nonspecific. This may be in part due to scarring but please correlate with any signs of infection. There is an 11 mm low density lesion exophytically arising from the lower pole of the left kidney that most likely represents a cyst. There is perinephric fat stranding on the left side. Surgical clips are seen medial to the left kidney. There are two small low density lesions within the upper pole of the right kidney which are not fully characterized on this study. They may represent tiny cysts. No pathologically enlarged upper abdominal or retroperitoneal lymph nodes are seen. There is atherosclerosis of the aorta and iliac arteries. The prostate gland is mildly enlarged. There is colonic diverticulosis without definite acute diverticulitis. The appendix is unremarkable. There are degenerative changes within the lumbar spine. IMPRESSION: 1. Postsurgical changes associated with partial left nephrectomy. There is a small area of low attenuation at the operative site which may represent scarring or infection. Please correlate clinically. 2. There is a collection anterior to the left kidney which may represent a small perinephric hematoma. This measures approximately 2.8 x 1 cm. Short- term followup is recommended in 4-6 weeks to reassess the collection along the anterior margin of the kidney and to exclude recurrent disease. 3. There are a few small low density lesions within both kidneys which are too small to characterize but they may represent cysts. 4. Colonic diverticulosis. 5. Mild fullness of the right renal collecting system which is nonspecific. . Dictated by: SAMEERA BARTON 08/01/2008 12:39 Electronically signed by: SAMEERA BARTON 08/02/2008 08:26 Transcribed: 08/01/2008 21:02 SJ Procedure Note Sameera Barton - 08/02/2008 [facility] [address], [place] [address] Admit Date: 08/01/2008 ADAMADANNIEAntwon Marie Sex: M Admit Prov: Osiel LARSON Date: 1945 Primary Care Prov: SARA MARTINEZ CMRN: [id number] Room: [facility] SSN: [id number] IMAGING SERVICES Ordering Prov: N/A Interpretation CT ABDOMEN AND PELVIS WITH IV CONTRAST 08/01/2008 Clinical Indication: 62-year-old man with history of renal mass. Technique: Helical scanning of the abdomen and pelvis was performedwith oral and intravenous contrast. Comparisons: None available. Findings: Images through the lung bases demonstrate dependentatelectasis bilaterally. There is a calcified pulmonary nodule within the leftlower lobe. The liver is unremarkable in appearance without intrahepatic biliaryductal dilatation. The gallbladder is present. There are a few punctate calcifications within the spleen. The pancreas and adrenal glandsare unremarkable. Both kidneys enhance symmetrically. There is mildfullness of the renal collecting system bilaterally. There is a low attenuation collection along the anterior aspect of the left kidney that measures1 x 2.8 cm (image 38, series 2). This may represent a small perinephricfluid collection/hematoma. The collection measures 41 Hounsfield units,which is more than would be expected for simple fluid. There arepostsurgical changes associated with partial left nephrectomy. There is some low attenuation within the lower pole of the left kidney at the operativesite (image 41, series 2) which is nonspecific. This may be in part dueto scarring but please correlate with any signs of infection. There isan 11 mm low density lesion exophytically arising from the lower pole ofthe left kidney that most likely represents a cyst. There is perinephric fat stranding on the left side. Surgical clips are seen medial to theleft kidney. There are two small low density lesions within the upper poleof the right kidney which are not fully characterized on this study.They may represent tiny cysts. No pathologically enlarged upper abdominal or retroperitoneal lymph nodes are seen. There is atherosclerosis of theaorta and iliac arteries. The prostate gland is mildly enlarged. There iscolonic diverticulosis without definite acute diverticulitis. The appendixis unremarkable. There are degenerative changes within the lumbarspine. IMPRESSION: 1. Postsurgical changes associated with partial left nephrectomy.There is a small area of low attenuation at the operative site which mayrepresent scarring or infection. Please correlate clinically. 2. There is a collection anterior to the left kidney which mayrepresent a small perinephric hematoma. This measures approximately 2.8 x 1 cm.Short- term followup is recommended in 4-6 weeks to reassess the collectionalong the anterior margin of the kidney and to exclude recurrent disease. 3. There are a few small low density lesions within both kidneyswhich are too small to characterize but they may represent cysts. 4. Colonic diverticulosis. 5. Mild fullness of the right renal collecting system which isnonspecific. . Dictated by: SAMEERA BARTON 08/01/2008 12:39 Electronically signed by: SAMEERA BARTON 08/02/2008 08:26 Transcribed: 08/01/2008 21:02 SJ us Demetrius Larson MD CT ORDERABLES Final Resu lt * POC CREATININE (08/01/2008 10:22 AM CDT) CREATININE POC 1.0 0.6 - 1.3 mg/dL [facility] Comment: The calculation for the estimated GFR on the i-STAT POC instrument has been changed to correspond to the IDMS-traceable MDRD Study, upon the recommendation of the toe puncher of the i-STAT instrument. The change was effective in our laboratory 02/12/2008. The impact of this change to the estimated GFR is minimal. This calculation is used by the main laboratory methodology also. GFR, >60 >=60 mL/min/1.7 sq meter [facility] GFR >60 >=60 mL/min/1.7 sq meter [facility] 08/01/2008 10:2 2 AM CDT 08/01/2008 10:22 AM CDT Demetrius Larson MD POINT OF CARE TESTING Edit ed INTERFACE SYSTEM Refer to clinic/hospital department [facility] CLIA# [id number] [address] [place] [address] * (ABNORMAL) COMPREHENSIVE METABOLIC PANEL (08/01/2008 10:06 AM CDT) POTASSIUM 4.0 3.5 - 4.9 mmol/L [facility] TOTAL PROTEIN 7.4 6.3 - 8.6 g/dL [facility] GLUCOSE 95 65 - 99 mg/dL [facility] AST 46(H) 12 - 38 U/L [facility] BUN 13 6 - 20 mg/dL [facility] CALCIUM 9.4 8.6 - 10.2 mg/dL [facility] ALBUMIN 4.4 3.4 - 4.8 g/dL [facility] CHLORIDE 104 96 - 108 mmol/L [facility] CREATININE 0.95 0.67 - 1.17 mg/dL [facility] ALT 86(H) 0 - 41 U/L [facility] SODIUM 140 135 - 145 mmol/L [facility] ALKALINE PHOSPHATASE 68 40 - 129 U/L [facility] CO2 23 22 - 30 mmol/L [facility] BILIRUBIN TOTAL 0.5 0.2 - 1.0 mg/dL [facility] GFR, >60 >=60 mL/min/1.7 sq meter [facility] GFR >60 >=60 mL/min/1.7 sq meter [facility] Comment: Modification of Diet in Renal Disease (MDRD) study formula. Estimated GFR rate interpretative information for both Americans and non- Americans is available on the [facility] Intranet at: [email or web address] Select: Lab Policies and Procedures Select: Reference Ranges - GFR 08/01/2008 10:0 6 AM CDT 08/01/2008 10:22 AM CDT us Demetrius Larson MD CHEMISTRY ORDERABLES Edite d INTERFACE SYSTEM Refer to clinic/hospital department [facility] CLIA# [id number] [address] [place] [address] documented in this encounter Visit Diagnoses Diagnosis Unspecified disorder of kidney and ureter documented in this encounter Care Teams All Terrain Vehicle Technician Relationship Specialty Start Date End Date Raisa Paulino MD [address] [facility] [address] [place] [address] PCP - General Internal Medicine 09/05/17 documented as of this encounter
--- OUTSIDE RECORDS SUMMARY | 2024-07-04 00:53 | XMS_ITS | Clinical Summary ---
Author Organization [facility] Administrative Offices Address [address] [place] [address] Care Team Providers Care Longwall Machine Operator Helper Name Role Phone Raisa Paulino MD Primary Care Provider + Allergies Active Allergy Reactions Criticality Noted Date Comments Lisinopril Angioedema High 03/30/2018 Penicillin G Itching Low 01/10/2009 Medications rosuvastatin (CRESTOR) 10 mg Oral tablet Take 10 mg by mouth daily at bedtime. Active aspirin (ANGELICA) 325 mg Oral tablet Take 325 mg by mouth daily. Active losartan (COZAAR) 25 mg tablet Take 25 mg by mouth. 09/13/2017 Active Active Problems Problem Noted Date Diagnosed Date Malignant neoplasm of kidney excluding renal pel vis 08/16/2013 Encounters Date Type Department Care Team Description 04/25/2024 External Device Data [facility]CTION Provider, Abstract 04/25/2024 External Device Data [facility] Provider, Abstract from Last 3 Months Social History Tobacco Use Types Packs/Day Years Used Date Smoking Tobacco: Former Cigarettes Q uit: 03/26/2011 Tobacco Cessation:Counseling Given: Not Answered Sex and Gender Information Value Date Recorded Sex Assigned at Male 11/16/2023 1:33 PM CDT Legal Sex Male 5:38 AM CHAPERONE Gender Identity Male 11/16/2023 1:33 PM CDT Sexual Orientation Straight 11/16/2023 1: 33 PM CDT Occupation Industry Job Start Date Job End Date Not on file Not on file Not on file Not on file Last Filed Vital Signs Vital Sign Reading Time Taken Comments Blood Pressure 124/70 11/16/2023 9:23 AM CDT Pulse 89 11/16/2023 9:23 AM CDT Temperature 36.2 C (97.1 F) 11/16/2023 9:23 AM CDT Respiratory Rate 16 11/16/2023 9:23 AM CDT Oxygen Saturation 95% 11/16/2023 9:23 AM CDT Inhaled Oxygen Concentration - - Weight 101.2 kg (223 lb) 11/16/2023 9:23 AM CDT Height 177.8 cm (5' 10 ) 11/16/2023 9:23 AM CDT Body Mass Index 32 11/16/2023 9:23 AM CDT Plan of Treatment Upcoming Encounters Date Type Department Care Team (Late st Contact Info) Description 11/15/2024 9:20 AM CDT Appointment [facility] Laboratory Services [facility] [address], [address] [place] [address] Zahira Scott MD [address] [place] [address] 11/15/2024 10:20 AM CDT Office Visit [facility] Oncology and Hematology [facility] [address] [place] [address] Zahira Scott MD [address] [place] [address] Health Maintenance Due Date Last Done Comments DTAP/TDAP/TD VACCINES (1 - Tdap) 10/06/1966 ZOSTER VACCINE (1 of 2) 10/06/1997 RSV VACCINE (60+ or ) (1 - 1-dose 75+ series) 10/06/2022 INFLUENZA VACCINE (#1) 2023 , 01/15/2021, 12/31/2019, Additional history exists COVID-19 Vaccine ( - 2023-2 5 season) 2023 12/02/2022, 09/28/2021, 01/15/2021, Additional history exists PNEUMOCOCCAL VACCINE 50+ YEARS Completed 09/13/2016 , 07/07/2015 COLORECTAL SCREENING Discontinued 10/16/2018, 11/23/2013, 11/23/2013 Colorectal Cancer Screening Discontinued FIT-DNA Q 3 years Discontinued FIT/FOBT Q 1 year Discontinued Flex Sig/CT Colonography Q 5 years Discontinued Insurance [employer] MEDICARE PART A AND B Care Teams Longwall Machine Operator Helper Relationship Specialty Start Date End Date Raisa Paulino MD [address] [place] [id number] PCP - General Internal Medicine 09/05/17
--- OUTSIDE RECORDS SUMMARY | 2024-07-04 00:53 | XMS_ITS | Clinical Summary ---
Author Organization [facility] Address [address] [place] [address] Care Team Providers Care Driver Guard Name Role Phone Raisa Paulino MD Primary Care Provider [phone] Zahira Scott MD Unavailable Raisa Paulino MD Unavailable [phone] Source Comments [facility],non-owned Affiliates and Associated Physician Practices is amultiple site organization consisting of ambulatory clinics and hospital sitesin [place], [place], [place] and [place]. This disclosure is being madepursuant to the Care Everywhere program and may not contain all information available regarding this patient. Last updated 17.[facility] Allergies Active Allergy Reactions Criticality Noted Date Comments Adhesive Sensitivity Rash Medium 06/27/2015 Lisinopril Angioedema High 04/28/2017 Penicillins Itching 01/28/2009 Eyes & nose Medications * Be aware that medications may not be up to date on this document. Alwaysverify current medications with the patient. Cetirizine HCl (ZYRTEC ALLERGY PO) Take by mouth at bedtime Active Multiple Vitamins-Minerals (OCUVITE PO) Take by mouth at bedtime Active Dextromethorphan-G uaifenesin (MUCINEX DM PO) Take by mouth as needed Active fish oil/omega-3 fatty acids (PROMEGA;CARDI-OME GA 3) 1000 MG capsule Take one cap daily po 90 capsule 11 08/28/19 21 Active aspirin EC (Aspirin 81) 81 MG tablet 03/07/19 24 Active docusate sodium (Colace) 100 MG capsuleIndications :Constipation, unspecified constipation type Take 1 (one) capsule by mouth 2 times daily 60 capsule 2 11/15/19 24 Active albuterol HFA (Proventil; Ventolin; Proair) 108 (90 Base) MCG/ACT inhalerIndications :Wheezing USE 2 INHALATIONS EVERY 4 HOURS NEEDED FOR SHORTNESS OF BREATH, WHEEZING OR COUGH 8.5 g 5 04/11/19 25 Active rosuvastatin (Crestor) 20 MG tabletIndications: Hyperlipidemia, unspecified hyperlipidemia type,Coronary artery disease involving ione coronary artery of ione heart without angina pectoris Take 1 (one) tablet by mouth once daily 90 tablet 1 06/27/19 25 Active losartan (Cozaar) 25 MG tabletIndications: Benign essential hypertension Take 0.5 (one-half) tablet by mouth once daily 45 tablet 2 06/27/19 25 Active methocarbamol (Robaxin) 750 MG tablet Take 1 (one) tablet by mouth at bedtime 90 tablet 3 06/27/19 25 Active losartan (Cozaar) 25 MG tabletIndications: Benign essential hypertension Take 0.5 (one-half) tablet by mouth once daily 45 tablet 2 11/15/19 24 025 Discontin ued(Reord er) methocarbamol (Robaxin) 750 MG tablet Take 1 (one) tablet by mouth at bedtime 90 tablet 3 11/15/19 24 025 Discontin ued(Reord er) rosuvastatin (Crestor) 20 MG tabletIndications: Hyperlipidemia, unspecified hyperlipidemia type,Coronary artery disease involving ione coronary artery of ione heart without angina pectoris Take 1 (one) tablet by mouth once daily 90 tablet 1 11/15/19 24 025 Discontin ued(Reord er) Active Problems Problem Noted Date Diagnosed Date Basal cell carcinoma (BCC) of skin of face 01/02 Squamous cell carcinoma in situ 01/02/2021 Calcification of aorta 01/08/2016 Overview (01/08/2016): CXR 09/20/09 History of coronary artery stent placement 06/21 History of renal cell carcinoma 08/27/2013 Malignant neoplasm of kidney excluding renal pel vis 08/16/2013 Overview (02/09/2021): Encounter Details Date Type Department Care Team Description 11/15/2019 Office Visit [facility] [place] [address] [facility] [facility] [address] [place] [address] Zahira Scott MD Obesity, Class I, BMI 30-34.9 10/24/2012 Prediabetes 03/27/2011 Benign prostatic hyperplasia with urinary obstru ction 03/01/2011 Overview (08/28/2016): IMO Update 09/04/2016 Hyperlipidemia 10/27/2009 Hypertension, benign essential 10/27/2009 H/O acute myocardial infarction of inferior wall 10/27/2009 Coronary artery disease 09/24/2009 Overview (09/24/2009): Acute inferior SD 09-20-09 Stent right coronary artery Noted: 80% lesion diagonal branch LAD Resolved Problems Problem Noted Date Diagnosed Date Resolved Date Cellulitis of forearm, left 05/28/13 05/29/2013 05/10/2017 Routine general medical exam ination at a health care facility 04/24/12 04/24/2012 01/09/2016 Tinea cruris 04/24/2012 01/09/2016 Vitamin D deficiency 03/27/2011 016 Overview (12/05/2014): Routine general medical exam ination at a health care facility 02/25/11 03/01/2011 06/21/2014 Hypernephroma S/P lt nephrec [facility] 03/01/2011 06/20/2014 Special screening for malign ant neoplasm of prostate 03/01/2011 06/21/2014 Overview (05/28/2013): Prostate exam 09/23/10 Dr. Larson Prostate exam 04/24/12 Prostate exam 05/29/13 Encounters Date Type Department Care Team Description 06/26/2024 10:20 AM CDT Office Visit [facility] - Internal Medicine [address] [place] [address] Raisa Paulino MD Routine general medical examination at health care facility (Primary Dx); Hyperlipidemia, unspecified hyperlipidemia type; Coronary artery disease involving ione coronary artery of ione heart without angina pectoris; History of renal cell carcinoma; Hypertension, benign essential; History of coronary artery stent placement; Prediabetes; Benign prostatic hyperplasia with urinary obstruction 04/10/2024 Refill [facility] - Internal Medicine [address] [place] [address] Raisa Paulino MD Refill Request from Last 3 Months Immunizations Immunization Administration Dates Next Due COVID MODERNA 12+ yr 50mcg/0.5mL 12/15/2023 COVID MODERNA BIVALENT 12Y+ 50MCG/0.5ML 12/26/2021 COVID PFIZER 12+YR 30MCG/0.3mL 12/02/2022 Covid Moderna primary monova lent 12+ yr 0.5mL 05/26/2020,04/28/2020 FLU, HISTORIC VACCINE 01/15/2021 INFLUENZA VACCINE 12/02/2022, 6,12/20/2013,2012,12/06/2012,12/06/2011,12/10/2010,1 INFLUENZA VACCINE, ADJUVANTE D, QUADR. (FLUAD QUADRIVALENT; 65Y+) (AIIV4) 12/26/2021 INFLUENZA VACCINE, HIGH-DOSE , QUADR. (FLUZONE HIGH-DOSE QUADRIVALENT; 65Y+), 0.7 ML (HD-IIV4) 01/15/2021,12/31/2019 INFLUENZA VACCINE, HIGH-DOSE , TRIV. (FLUZONE HIGH-DOSE TRIVALENT; 65Y+) (HD-IIV3) 12/15/2023 INFLUENZA VACCINE, QUADR. (F LUZONE; FLULAVAL; FLUARIX; AFLURIA QUADRIVALENT; 6MO+), 0.5 ML (IIV4) 01/02/2015,12/12/2013 INFLUENZA VACCINE, TRIV. (FL UZONE; FLULAVAL; FLUARIX; AFLURIA TRIVALENT; 6MO+), 0.5 ML (IIV3) 12/20/2012 MODERNA SARS-COV-2 COVID-19 VACCINE 0.25ML 09/28/2021,01/15/2021 PNEUMOCOCCAL PPSV23 09/13/2016 Pneumococcal Pcv13 Conj 07/07/2015 RSV ABRYSVO PREG OR 60y+ 0.5mL 12/02/2022 iNFLUENZA VACCINE, RECOM-SINGLETON, QUADR. (FLUBLOCK QUADRIVALENT; 18Y+) (RIV4) 01/03/2019,11/09/2017 Family History Medical History Relation Name Comments CAD (Coronary Artery Disease) Father Cancer - Skin, Melanoma Father Macular Degeneration Mother CVA Neg Hx Thyroid Disease Neg Hx Relation Name Status Comments Brother 1 Alive Brother 2 Alive Father Alive Mother Alive Sister Alive Social History Tobacco Use Types Packs/Day Years Used Date Smoking Tobacco: Former Cigarettes 0.3 32 0 03/07/1966 - 03/07/1998 Smokeless Tobacco: Never Tobacco Cessation:Counseling Given: Yes Alcohol Use Standard Drinks/Week Comments Yes 0 (1 standard drink = 0.6 oz pur e alcohol) rarely PHQ-2 Answer Date Recorded Patient Health Questionnaire-2 Score 0 06/26/2024 Sex and Gender Information Value Date Recorded Sex Assigned at Male 08/24/2020 10:48 AM CDT Legal Sex Male 6:50 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 Gender Identity Male 08/24/2020 10:48 AM CDT Sexual Orientation Not on file 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 Not on file Not on ester e Not on file Last Filed Vital Signs Vital Sign Reading Time Taken Comments Blood Pressure 128/78 06/26/2024 10:03 AM CDT Pulse 63 06/26/2024 10:03 AM CDT Temperature 36.3 C (97.4 F) 06/26/2024 10:03 AM CDT Respiratory Rate 16 01/04/2014 1:05 PM CDT Oxygen Saturation 97% 06/26/2024 10: 03 AM CDT Inhaled Oxygen Concentration - - Weight 104.5 kg (230 lb 6.4 oz) 025 10:03 AM CDT Height 177.8 cm (5' 10 ) 06/26/2024 10: 03 AM CDT Body Mass Index 33.06 06/26/2024 10:03 AM CDT Plan of Treatment Upcoming Encounters Date Type Department Care Team (Late st Contact Info) Description 12/04/2024 9:40 AM CDT Office Visit [facility] - Internal Medicine [address] [place] [address] Raisa Paulino MD [address] [place] [address] Health Maintenance Due Date Last Done Comments DTAP/TDAP/TD VACCINES (1 - Tdap) 10/06/1966 ZOSTER VACCINE (1 of 2) 10/06/1997 COVID-19 VACCINE ( season) 2024 12/15/2023, 12/02/2022, 12/26/2021, Additional history exists MEDICARE AWV 12 MONTHS 06/26/2025 06/26/2024, 06/15/2023, 02/17/2022, Additional history exists HEPATITIS C SCREENING Completed 01/10/2016 PNEUMOCOCCAL VACCINE 50+ Completed 09/13/2016, 04/2015 Respiratory Syncytial Virus (RSV) Vaccine Pt: or over 60 yrs Completed 12/02/2022 INFLUENZA VACCINE Completed 12/15/2023, , 12/26/2021, Additional history exists DEPRESSION SCREENING Completed 06/26/2024, 06/15/2023, 09/08/2022, Additional history exists HEPATITIS B VACCINE Aged Out No longe r eligible based on patient's age to complete this topic HIB VACCINE Aged Out No longer eligi ble based on patient's age to complete this topic HPV VACCINE Aged Out No longer eligi ble based on patient's age to complete this topic MENINGOCOCCAL (Group B) VACCINE SHARED DECISION-MAKING Aged Out No longer eligible based on patient's age to complete this topic MENINGOCOCCAL GROUPS A/C/Y/W VACCINE Aged Out No longer eligible based on patient's age to complete this topic Goals Goal Patient Goal Type Associated Problems Recent Progress Patient-Stated? Author Blood Pressure < 140/90 Blood Pressure 128/78( 025 10:03 AM CDT) Venessa Camacho MA Procedures Procedure Name Priority Date/Time Associated Diagnosis Comments HEPATITIS C ANTIBODY Routine 01/10/2016 9:01 AM CDT Screening examination for infectious disease from Last 3 Months or Most Recently Relevant to Health Maintenance Results * HEPATITIS C ANTIBODY (01/10/2016 9:01 AM CDT) Hepatitis C Antibody <0.1 0.0 - 0.9 s/co ratio [facility] INSURANCE BILL Comment: Negative: < 0.8 Indeterminate: 0.8 - 0.9 Positive: > 0.9 . The CDC recommends that a positive HCV antibody result be followed up with a HCV Nucleic Acid Amplification test (431997). Blood BLOOD SPECIMEN / Unknown 01/10/2016 9:01 AM CDT 01/10/2016 Narrative Resulting Agency [facility] [address] [facility] [id number] Nils Franz MD LAB - CHEMISTRY ORDERABLES Final Result [facility] INSURANCE BILL [address] [place] [address] from Last 3 Months or Most Recently Relevant to Health Maintenance Insurance MEDICARE [facility] Care Teams Driver Guard Relationship Specialty Start Date End Date Raisa Paulino MD [address] [place] [address] PCP - General Internal Medicine 07/23/16 Raisa Paulino MD [address] [place] [address] PCP - Attributed-MSSP 06/06/23 Zahira Scott MD [address] [facility] [address] [place], [place] [id number] Internal Medicine 01/08/20
--- OUTSIDE RECORDS SUMMARY | 2024-07-04 00:53 | XMS_ITS | Clinical Summary ---
Author Organization [facility] Address [address] [place] [address] Care Team Providers Care Cottonseed Meat Presser Name Role Phone Unavailable Primary Care Provider Unavailabl e Social History Tobacco Use Types Packs/Day Years Used Date Smoking Tobacco: Never Assessed Sex and Gender Information Value Date Recorded Sex Assigned at Not on file Legal Sex Male 10:09 PM CDT Gender Identity Not on file Sexual Orientation Not on file Plan of Treatment Health Maintenance Due Date Last Done Comments Hepatitis C 10/06/1965 DTaP, Tdap and Td Vaccines ( 1 - Tdap) 10/06/1966 Pneumococcal Vaccine: 50+ Ye ars (1 of 1 - PCV) 10/06/1997 Zoster Vaccines (1 of 2) 10/06/1997 RSV Immunization or 60+ Years (1 - 1-dose 75+ series) 10/06/2022 COVID-19 Vaccine ( - 2023-2 5 season) 2023 Meningococcal B Vaccine Aged Out No l onger eligible based on patient's age to complete this topic Meningococcal Vaccine Aged Out No raul theresa eligible based on patient's age to complete this topic RSV Immunizations Under 20 Months Aged Out No longer eligible based on patient's age to complete this topic
--- OUTSIDE RECORDS SUMMARY | 2024-07-04 00:53 | XMS_ITS | Clinical Summary ---
Author Organization [facility] Address [address] [place] [address] Care Team Providers Care Machine Programmer Name Role Phone Raisa Paulino MD Primary Care Provider + CouVidal skelton MD Unavailable [phone] Allergies Active Allergy Reactions Criticality Noted Date Comments Adhesive Tape-Silicones Rash Medium 06/27/2015 Lisinopril Angioedema High 09/08/2018 Penicillins Rash Medium 09/08/2018 Medications aspirin 325 mg tabletIndicatio ns:CA with 2 stents Take 325 mg by mouth nightly 9 Active ibuprofen (ibuprofen) 200 mg tab/cap Take 600 mg by mouth every 6 (six) hours as needed for pain Active losartan (COZAAR) 25 mg tabletIndicatio ns:hypertension Take 25 mg by mouth nightly 8 Active methocarbamol (ROBAXIN) 750 mg tablet Take 750 mg by mouth as needed for muscle spasms 9 Active nitroglycerin (NITROSTAT) 0.3 mg SL tablet every 5 (five) minutes as needed for chest pain Never needed 7 Active omega-3 fatty acids (LOVAZA) 1 gram capsuleIndicati ons:hypertrigly ceridemia nightly 3 Active rosuvastatin (CRESTOR) 10 mg tabletIndicatio ns:hyperlipidem ia Take 20 mg by mouth nightly Active vit C/vit E/lutein/min/om ega-3 (OCUVITE ORAL)Indication s:for supplement Take by mouth nightly Active guaifenesin/dex tromethorphan (MUCINEX DM ORAL) Take by mouth as needed (congestion) Active cetirizine (ZyrTEC) 10 mg tablet Take 10 mg by mouth as needed for allergies Active erythromycin (ILOTYCIN) ophthalmic ointment Place on incisions three times per day and in operative eye as needed. 3.5 g 3 2 Active Active Problems Problem Noted Date Diagnosed Date Entropion of left lower eyelid 03/19/2021 Overview (03/19/2021): Added automatically from request for surgery [id number] Surgical History Surgery Date Site/Laterality Comments NEPHRECTOMY 03/07/2007 - 03/06/2008 partial TONSILLECTOMY/ADENOIDECTOMY 1949' CORONARY ANGIOPLASTY WITH STENT PLACEMENT 03/07/2009 - 03/06/2010 with 2 heart stents ENTROPION REPAIR 03/27/2021 Left LLL Medical History Medical History Date Comments Hypercholesteremia Hypertension Myocardial infarction (HCC) Seasonal allergies Cancer (HCC) renal cell carci noma Family History Medical History Relation Name Comments No Known Problems Father Macular degeneration Mother Anesthesia problems Neg Hx Blindness Neg Hx Diabetes Neg Hx Glaucoma Neg Hx Thyroid disease Neg Hx Relation Name Status Comments Father Mother Social History Tobacco Use Types Packs/Day Years Used Date Smoking Tobacco: Former Cigarettes 0.5 28 1 972 - 2000 Smokeless Tobacco: Never Alcohol Use Standard Drinks/Week Comments Yes 0 (1 standard drink = 0.6 oz pur e alcohol) AUDIT-C Answer Date Recorded Q1: How often do you have a drink containing alc ohol? 2-4 times a month 03/27/2021 Q2: How many drinks containi ng alcohol do you have on a typical day when you are drinking? 1 or 2 03/27/2021 Q3: How often do you have si x or more drinks on one occasion? 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 Gender Identity Male 03/10/2021 8:27 AM CRYPTOGRAPHIC CENTER SPECIALIST Sexual Orientation Straight 03/10/2021 8: 27 AM CRYPTOGRAPHIC CENTER SPECIALIST Obstetrics History Last Filed Vital Signs Vital Sign Reading Time Taken Comments Blood Pressure 115/59 03/27/2021 7:59 AM CRYPTOGRAPHIC CENTER SPECIALIST Pulse 65 03/27/2021 7:59 AM CRYPTOGRAPHIC CENTER SPECIALIST Temperature 36 C (96.8 F) 03/27/2021 6:38 AM CRYPTOGRAPHIC CENTER SPECIALIST Respiratory Rate 17 03/27/2021 7:59 AM CRYPTOGRAPHIC CENTER SPECIALIST Oxygen Saturation 94% 03/27/2021 7:59 AM CRYPTOGRAPHIC CENTER SPECIALIST Inhaled Oxygen Concentration - - Weight 102.1 kg (225 lb) 03/27/2021 6:38 AM CRYPTOGRAPHIC CENTER SPECIALIST Height 177.8 cm (5' 10 ) 03/27/2021 6:38 AM CRYPTOGRAPHIC CENTER SPECIALIST Body Mass Index 32.28 03/27/2021 6:38 AM CRYPTOGRAPHIC CENTER SPECIALIST Plan of Treatment Not on file Medical Devices Implanted Type Area Head Coach Device Identifier Shelf Expiration Date Model / Serial / Lot Coronary Stents N/A: Heart Insurance MEDICARE [employer] MEDICARE FOR LIFE Care Teams Machine Programmer Relationship Specialty Start Date End Date Raisa Paulino MD [address] [place] [address] PCP - General Internal Medicine 03/17/21 Vidal Henry MD [address] [place] [address] Surgeon Ophthalmology 03/27/21
--- OUTSIDE RECORDS SUMMARY | 2024-07-04 00:53 | XMS_ITS | Encounter Summary ---
Author Organization [facility] Address 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 [address] [place] [address] Zahira Scott MD [address] [place] [address] 11/15/2024 10:20 AM CDT Office Visit [facility] Oncology and Hematology [facility] [address] [place] [address] Zahira Scott MD [address] [facility] [address] [place] [address] documented as of this encounter Visit Diagnoses Diagnosis Unspecified disorder of kidney and ureter documented in this encounter Care Teams Drum Carrier Relationship Specialty Start Date End Date Raisa Paulino MD [address] [facility] [facility] [facility] [address] [place] [id number] PCP - General Internal Medicine 09/05/17 documented as of this encounter
--- OUTSIDE RECORDS SUMMARY | 2024-07-04 00:53 | XMS_ITS ---
Author Organization [facility] Address [address] [place] [address] Care Team Providers Care Cafe Site Attendant Name Role Phone Raisa Paulino MD Primary Care Provider + Active Problems Problem Noted Date Diagnosed Date Malignant neoplasm of kidney excluding renal pel vis 08/16/2013 Current Treatment and Therapy Plans No current plan information found. Past Treatment and Therapy Plans No past plan information found. Lifetime Dose Tracking * Chemical Lifetime Dose Automatic Entry Manual Entr y Effective Dose 47.9 mSv 47.9 mSv 0 mSv Total DLP 4,045 DLP 4,045 DLP 0 DLP CTDIvol Max 62.7 mGy 62.7 mGy 0 mGy CTDIvol Min 55.2 mGy 55.2 mGy 0 mGy
--- OUTSIDE RECORDS SUMMARY | 2024-07-04 00:53 | XMS_ITS | Encounter Summary ---
Author Organization [facility] Address 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 [address] [place] [address] Zahira Anderson MD [address] [place] [address] (work) documented as of this encounter Procedures Procedure Name Priority Date/Time Associated Diagnosis Comments NM BONE SCAN WHOLE BODY Timed Study 03/12/2008 1:45 PM CALIBRATION TECHNICIAN documented in this encounter Results * NM BONE SCAN WHOLE BODY (03/12/2008 1:45 PM CALIBRATION TECHNICIAN) Anatomical Region Laterality Modality Other 03/12/2008 1:45 PM CALIBRATION TECHNICIAN Narrative 03/12/2008 1:46 PM CALIBRATION TECHNICIAN [facility] [address] [place], [place] [address] Admit Date: 03/12/2008 KRYSTAL SANTIAGO Sex: M Admit Prov: JAMEE ANDERSON Date: 1945 Primary Care Prov: SARA MARTINEZ CMRN: [id number] Room: [facility] SSN: [id number] IMAGING SERVICES Ordering Prov: N/A Accession Number: [id number] Interpretation WHOLE BODY BONE SCAN HISTORY: 62-year-old male with left-sided kidney carcinoma diagnosed in January 2008. He is status post partial left nephrectomy. PROCEDURE: Approximately three hours after injection with 30.8 mCi of Tc 99m MDP, the patient was imaged in whole body anterior and posterior planar views. FINDINGS: Correlation is made with MR imaging dated 11/10/2007, and plain film imaging dated 01/20/2008. Soft tissue uptake is normal, and the kidneys are visualized bilaterally. Mild degenerative activity is identified at T9 and T7. Otherwise, there is a normal pattern of tracer distribution throughout the axial and appendicular skeleton. Specifically, there are no findings on the study compatible with osseous metastatic disease. IMPRESSION: 1. Mild degenerative activity as above. 2. No evidence for osseous metastatic disease. . Dictated by: RAYSHAWN VEGA 03/12/2008 13:43 Electronically signed by: RAYSHAWN VEGA 03/12/2008 13:46 Procedure Note Rayshawn Vega - 03/12/2008 [facility] [address] [place], [place] [address] Admit Date: 03/12/2008 KRYSTAL SANTIAGO Sex: M Admit Prov: JAMEE ANDERSON Date: 1945 Primary Care Prov: SARA MARTINEZ CMRN: [id number] Room: [facility] SSN: [id number] IMAGING SERVICES Ordering Prov: N/A Interpretation WHOLE BODY BONE SCAN HISTORY: 62-year-old male with left-sided kidney carcinoma diagnosed 2007. He is status post partial left nephrectomy. PROCEDURE: Approximately three hours after injection with 30.8 mCi of Tc 99mMDP, the patient was imaged in whole body anterior and posterior planarviews. FINDINGS: Correlation is made with MR imaging dated 11/10/2007, and plain filmimaging dated 01/20/2008. Soft tissue uptake is normal, and the kidneys are visualized bilaterally. Mild degenerative activity is identified atT9 and T7. Otherwise, there is a normal pattern of tracer distributionthroughout the axial and appendicular skeleton. Specifically, there are nofindings on the study compatible with osseous metastatic disease. IMPRESSION: 1. Mild degenerative activity as above. 2. No evidence for osseous metastatic disease. . Dictated by: RAYSHAWN VEGA 03/12/2008 13:43 Electronically signed by: RAYSHAWN VEGA 03/12/2008 13:46 Jamee BOYD ORDERABLES Final Result documented in this encounter Visit Diagnoses Diagnosis Malignant neoplasm of kidney, except pelvis (CMS/HCC) Malignant neoplasm of kidney, except pelvis documented in this encounter Care Teams Technical Project Manager Relationship Specialty Start Date End Date Raisa Paulino MD [address] [place] [address] PCP - General Internal Medicine 09/05/17 documented as of this encounter
--- OUTSIDE RECORDS SUMMARY | 2024-07-04 00:53 | XMS_ITS | Encounter Summary ---
Author Organization [facility] Address [address] [place] [address] Care Team Providers Care Sand Molder Name Role Phone Raisa Paulino MD Primary Care Provider + Encounter Details Date Type Department Care Team (Latest Contact Info) Description 01/05/2008 Outpatient Historical HIS [place] [address] [place] [address] Unspecified Disorder of Kidney and Ureter Social History Tobacco Use Types Packs/Day Years Used Date Smoking Tobacco: Never Assessed Sex and Gender Information Value Date Recorded Sex Assigned at Male 11/16/2023 1:33 PM CDT Legal Sex Male 5:38 AM JET AIRCRAFT SERVICER Gender Identity Male 11/16/2023 1:33 PM CDT Sexual Orientation Straight 11/16/2023 1: 33 PM CDT documented as of this encounter Plan of Treatment Upcoming Encounters Date Type Department Care Team (Late st Contact Info) Description 11/15/2024 9:20 AM CDT Appointment [facility] Laboratory Services [facility] [address], [address] [place] [address] Zahira Scott MD [address] [place] [address] 11/15/2024 10:20 AM CDT Office Visit [facility] Oncology and Hematology [facility] [address] [place] [address] Zahira Scott MD [address] [facility] [address] [place], [place] [id number] documented as of this encounter Procedures Procedure Name Priority Date/Time Associated Diagnosis Comments CBC WITH DIFFERENTIAL Routine 01/21/2008 5:20 AM JET AIRCRAFT SERVICER XR CHEST PA AND LATERAL 2 VW Timed Study 01/20/2008 12:39 PM JET AIRCRA[employer] SERVICER CBC WITH DIFFERENTIAL Routine 01/20/2008 4:45 AM JET AIRCRAFT SERVICER HEMOGLOBIN AND HEMATOCRIT Routine 01/19/2008 5:00 AM JET AIRCRAFT SERVICER BASIC METABOLIC PANEL Routine 01/19/2008 5:00 AM JET AIRCRAFT SERVICER HEMOGLOBIN AND HEMATOCRIT Stat 01/18/2008 5:03 PM JET AIRCRAFT SERVICER PATHOLOGY Routine 01/18/2008 5:00 PM JET AIRCRAFT SERVICER POC, BLOOD GASES Routine 01/18/2008 4:10 PM JET AIRCRAFT SERVICER TYPE AND CROSSMATCH ADDITIONAL PACKED CELLS Routine 01/18/2008 3:05 PM JET AIRCRAFT SERVICER HEMOGLOBIN AND HEMATOCRIT Routine 01/08/2008 10:33 AM JET AIRCRAFT SERVICER BASIC METABOLIC PANEL Routine 01/08/2008 10:33 AM JET AIRCRAFT SERVICER TYPE AND SCREEN Routine 01/08/2008 10:32 AM JET AIRCRAFT SERVICER documented in this encounter Results * (ABNORMAL) CBC WITH DIFFERENTIAL (01/21/2008 5:20 AM JET AIRCRAFT SERVICER) WBC 18.5(H) 4.0 - 9.8 K/uL [facility] MCH 31.3 27.2 - 32.6 pg [facility] MPV 10.2 9.3 - 12.4 fL [facility] HEMATOCRIT 34.2(L) 40.0 - 48.0 % [facility] RDW-STDEV 44.9 37.1 - 48.7 fL [facility] RBC 3.67(L) 4.50 - 5.40 M/uL [facility] MCHC 33.6 31.5 - 35.5 % [facility] MCV 93.2 82.0 - 99.0 fL [facility] PLATELETS 176 140 - 350 K/uL [facility] HEMOGLOBIN 11.5(L) 13.6 - 16.5 g/dL [facility] RDW 13.2 11.5 - 14.5 % [facility] LYMPHOCYTE ABSOLUTE 2.24 0.70 - 4.50 K/uL [facility] BASOPHILS 0 0 - 2 % [facility] BASOPHILS ABSOLUTE 0.03 0.00 - 0.20 K/uL [facility] MONOCYTES 13 3 - 13 % [facility] MONOCYTE ABSOLUTE 2.39(H) 0.10 - 1.30 K/uL [facility] NEUTROPHILS 74(H) 45 - 70 % [facility] NEUTROPHIL ABSOLUTE 13.75(H) 1.90 - 7.00 K/uL [facility] EOSINOPHILS 0 0 - 7 % [facility] EOSINOPHIL ABSOLUTE 0.08 0.00 - 0.70 K/uL [facility] LYMPHOCYTES 12(L) 16 - 45 % [facility] Blood specimen (specimen) 01/21/2008 5:20 AM JET AIRCRAFT SERVICER 01/21/2008 5:50 AM JET AIRCRAFT SERVICER Wendie Gray MD HEMATOLOGY ORDERABLES Edited INTERFACE SYSTEM Refer to clinic/hospital department [facility] CLIA# [id number] [address] [place] [address] * XR CHEST PA AND LATERAL (01/20/2008 12:39 PM JET AIRCRAFT SERVICER) Anatomical Region Laterality Modality Chest Other 01/20/2008 12:3 9 PM JET AIRCRAFT SERVICER Narrative 01/21/2008 12:43 PM JET AIRCRAFT SERVICER [facility] [address] [place], [place] [address] Admit Date: 01/18/2008 KRYSTAL SANTIAGO Sex: M Admit Prov: Osiel ANTHONY Date: 1945 Primary Care Prov: SARA MARTINEZ CMRN: [id number] Room: [address] [place] [address] SSN: [id number] IMAGING SERVICES Ordering Prov: N/A Accession Number: [id number] Interpretation CHEST, PA AND LATERAL, 01/20/2008 Indication: Fever. Findings: Streaky opacities are present, consistent with discoid atelectasis in the left base. The right lung is clear. No pleural effusion is seen. No pneumothorax is identified. Mediastinal and cardiac contours are normal. Osseous structures appear intact. Impression: Left lower lobe streaky atelectasis. . Dictated by: DELANO JUNG 01/20/2008 12:57 Electronically signed by: DELANO JUNG 01/21/2008 12:42 Transcribed: 01/20/2008 13:10 SMM Procedure Note Delano Jung - 01/21/2008 [place] [id number] [place], [place] [address] Admit Date: 01/18/2008 KRYSTAL SANTIAGO Sex: M Admit Prov: Osiel ANTHONY Date: 1945 Primary Care Prov: SARA MARTINEZ CMRN: [id number] Room: [address] [place] [address] 2 SSN: [id number] IMAGING SERVICES Ordering Prov: N/A Interpretation CHEST, PA AND LATERAL, 01/20/2008 Indication: Fever. Findings: Streaky opacities are present, consistent with discoid atelectasis inthe left base. The right lung is clear. No pleural effusion is seen. No pneumothorax is identified. Mediastinal and cardiac contours arenormal. Osseous structures appear intact. Impression: Left lower lobe streaky atelectasis. . Dictated by: DELANO JUNG 01/20/2008 12:57 Electronically signed by: DELANO JUNG 01/21/2008 12:42 Transcribed: 01/20/2008 13:10 SMM Wendie Gray MD DIAGNOSTIC IMAGING ORDERABLE S Final Result * (ABNORMAL) CBC WITH DIFFERENTIAL (01/20/2008 4:45 AM JET AIRCRAFT SERVICER) WBC 16.6(H) 4.0 - 9.8 K/uL [facility] MCH 31.0 27.2 - 32.6 pg [facility] MPV 10.0 9.3 - 12.4 fL [facility] HEMATOCRIT 32.7(L) 40.0 - 48.0 % [facility] RDW-STDEV 46.1 37.1 - 48.7 fL [facility] RBC 3.48(L) 4.50 - 5.40 M/uL [facility] MCHC 33.0 31.5 - 35.5 % [facility] MCV 94.0 82.0 - 99.0 fL [facility] PLATELETS 157 140 - 350 K/uL [facility] HEMOGLOBIN 10.8(L) 13.6 - 16.5 g/dL [facility] RDW 13.5 11.5 - 14.5 % [facility] LYMPHOCYTES 13(L) 16 - 45 % [facility] LYMPHOCYTE ABSOLUTE 2.18 0.70 - 4.50 K/uL [facility] BASOPHILS 0 0 - 2 % [facility] BASOPHILS ABSOLUTE 0.01 0.00 - 0.20 K/uL [facility] MONOCYTES 11 3 - 13 % [facility] MONOCYTE ABSOLUTE 1.88(H) 0.10 - 1.30 K/uL [facility] NEUTROPHILS 75(H) 45 - 70 % [facility] NEUTROPHIL ABSOLUTE 12.51(H) 1.90 - 7.00 K/uL [facility] EOSINOPHILS 0 0 - 7 % [facility] EOSINOPHIL ABSOLUTE 0.04 0.00 - 0.70 K/uL [facility] Blood specimen (specimen) 01/20/2008 4:45 AM JET AIRCRAFT SERVICER 01/20/2008 4:54 AM JET AIRCRAFT SERVICER us Demetrius Anthony MD HEMATOLOGY ORDERABLES Edit ed INTERFACE SYSTEM Refer to clinic/hospital department [facility] CLIA# [id number] [address] [place] [address] * (ABNORMAL) BASIC METABOLIC PANEL (01/19/2008 5:00 AM JET AIRCRAFT SERVICER) POTASSIUM 4.3 3.5 - 4.9 mmol/L [facility] Comment: Moderate hemolysis present. Can cause significant falsely elevated result. Clinical judgement necessary. Redraw if indicated. BUN 16 6 - 20 mg/dL [facility] CHLORIDE 104 96 - 108 mmol/L [facility] GLUCOSE 143(H) 65 - 99 mg/dL [facility] SODIUM 138 135 - 145 mmol/L [facility] CALCIUM 7.9(L) 8.6 - 10.2 mg/dL [facility] CO2 22 22 - 30 mmol/L [facility] CREATININE 1.03 0.67 - 1.17 mg/dL [facility] GFR, >60 >=60 mL/min/1. 7 sq meter [facility] GFR >60 >=60 mL/min/1. 7 sq meter [facility] Comment: Modification of Diet in Renal Disease (MDRD) study formula. Estimated GFR rate interpretative information for both Americans and non- Americans is available on the [facility] Intranet at: [email or web address] Select: Lab Policies and Procedures Select: Reference Ranges - GFR Blood specimen (specimen) 01/19/2008 5:00 AM JET AIRCRAFT SERVICER 01/19/2008 5:31 AM JET AIRCRAFT SERVICER Demetrius Anthony MD CHEMISTRY ORDERABLES Edite d Performing Organization Address [facility] Phone Number INTERFACE SYSTEM Refer to clinic/hospital department [facility] CLIA# [id number] [address] [place] [address] * (ABNORMAL) HEMOGLOBIN AND HEMATOCRIT (01/19/2008 5:00 AM JET AIRCRAFT SERVICER) HEMOGLOBIN 11.9(L) 13.6 - 16.5 g/dL [facility] HEMATOCRIT 35.7(L) 40.0 - 48.0 % [facility] Blood specimen (specimen) 01/19/2008 5:00 AM JET AIRCRAFT SERVICER 01/19/2008 5:31 AM JET AIRCRAFT SERVICER us Demetrius Anthony MD HEMATOLOGY ORDERABLES Josephine l Result Performing Organization Address [facility] de Phone Number INTERFACE SYSTEM Refer to clinic/hospital department [facility] CLIA# [id number] [address] [place] [address] * HEMOGLOBIN AND HEMATOCRIT (01/18/2008 5:03 PM JET AIRCRAFT SERVICER) HEMOGLOBIN 13.8 13.6 - 16.5 g/dL [facility] HEMATOCRIT 40.7 40.0 - 48.0 % [facility] Blood specimen (specimen) 01/18/2008 5:03 PM JET AIRCRAFT SERVICER 01/18/2008 5:09 PM JET AIRCRAFT SERVICER us Demetrius Anthony MD HEMATOLOGY ORDERABLES Josephine saunders Result INTERFACE SYSTEM Refer to clinic/hospital department [facility] CLIA# [id number] [address] [place] [address] * PATHOLOGY (01/18/2008 5:00 PM JET AIRCRAFT SERVICER) FINAL REPORT [facility] [address], [place] [address] Patient: KRYSTAL SANTIAGO : 1945 Procedure Date: 01/18/2008 Accession Date: 01/19/2008 Case No: [id number] Ordering Dr: Osiel ANTHONY Case types AW, BW, FW, NW and SH are performed by [facility] [place], [place] SURGICAL PATHOLOGY & NON-GYNECOLOGIC CYTOPATHOLOGY REPORT DIAGNOSIS KIDNEY, LEFT, PARTIAL NEPHRECTOMY: - RENAL CELL CARCINOMA (SEE MICROSCOPIC). Specimen Description: Left renal mass. Operative Procedure: Da Caitlin-assisted laparoscopic left partial nephrectomy. Patient Information/History/Di agnosis: Left renal mass. Gross: Received in a single container labeled Krystal Santiago, left kidney mass is an 8-g, 3.0 x 2.1 x 1.8-cm excision of mobley tissue. One surface is smooth and encapsulated. The opposite surface is roughened. The roughened surface is marked with blue ink. The smooth surface is marked with black ink. The specimen is serially sectioned. Sectioning exhibits a circumscribed, homogeneous mobley nodule with central white discoloration. The nodule is 1.8 x 1.6 cm in cross-section and abuts both the blue and black-inked margins. The residual kidney parenchyma is unremarkable. The specimen is entirely sequentially submitted in cassettes A1 through A7. KLA/YARELIS 01.19.2008 08:54 am Microscopic: The slides are labeled [id number], Krystal Santiago. This is a well-encapsulated neoplasm composed of cells with abundant, eosinophilic granular cytoplasm and nuclei with one or more prominent nucleoli. The cells grow in large nests. A central scar is present. There is no evidence of necrosis, and mitotic activity is inconspicuous. Large blood lakes are present. The differential diagnosis in this case includes renal cell carcinoma with granular cells and oncocytoma. A battery of immunohistochemical stains is performed. The tumor cells are strongly positive for vimentin. They are negative for CD117, and only occasional cells are positive for cytokeratin 7. This immunophenotype establishes the diagnosis of renal cell carcinoma with prominent granular cells. The Nehal nuclear grade is 4. The lesion has been entirely excised. No abnormalities are identified in the surrounding renal parenchyma. Summary of Significant Characteristics for Partial/Total Nephrectomy: Specimen Type: Partial nephrectomy. Laterality: Left. Focality: Unifocal. Tumor Size: 1.8 cm. Macroscopic Extent of Tumor: Limited to kidney. Histologic Type: Renal cell carcinoma with granular cells. Histologic Grade: Nehal nuclear grade 4. Extent of Invasion (TNM): T1a, NX, MX. Margin(s): Uninvolved. Adrenal Gland: Not present. TONF/VALERI 01.22.2008 09:41 am Staging Form: Yes. ELECTRONIC SIGNATURE FOR LINDA BRAR M.D.- 01/24/08 01:06 pm INTERFACE SYSTEM 01/18/2008 5:00 PM JET AIRCRAFT SERVICER us Demetrius Anthony MD PATHOLOGY/CYTOLOGY ORDERAB LES Final Result Performing Organization Address [facility] Phone Number INTERFACE SYSTEM Refer to clinic/hospital department * POC RT, BLOOD GASES (01/18/2008 4:10 PM JET AIRCRAFT SERVICER) COMMENT, GASES POC NOTIFIED [facility] PATIENT'S TEMPERATURE 37.0 Degree C [facility] HEMATOCRIT POC 43.0 40.0 - 48.0 % [facility] Blood specimen (specimen) 01/18/2008 4:10 PM JET AIRCRAFT SERVICER 01/18/2008 4:10 PM JET AIRCRAFT SERVICER us Demetrius Anthony MD CHEMISTRY ORDERABLES Final Result Performing Organization Address [facility]/ZIP Co de Phone Number INTERFACE SYSTEM Refer to clinic/hospital department [facility] CLIA# [id number] [address] [place] [address] * TYPE & CROSS ADDITIONAL PACKED CELLS (01/18/2008 3:05 PM JET AIRCRAFT SERVICER) Specimen of unknown material (specimen) 01/18/2008 3:05 PM JET AIRCRAFT SERVICER 01/18/2008 3:14 PM JET AIRCRAFT SERVICER Demetrius Anthony MD BLOOD BANK ORDERABLES Josephine chip Result Performing Organization Address [facility] de Phone Number INTERFACE SYSTEM Refer to clinic/hospital department * (ABNORMAL) HEMOGLOBIN AND HEMATOCRIT (01/08/2008 10:33 AM JET AIRCRAFT SERVICER) [facility] HEMOGLOBIN 16.3 13.6 - 16.5 g/dL [facility] HEMATOCRIT 48.4(H) 40.0 - 48.0 % [facility] Blood specimen (specimen) 01/08/2008 10:33 AM JET AIRCRAFT SERVICER 01/08/2008 11:03 AM JET AIRCRAFT SERVICER Demetrius Anthony MD HEMATOLOGY ORDERABLES Josephine l Result Performing Organization Address [facility] de Phone Number INTERFACE SYSTEM Refer to clinic/hospital department [facility] CLIA# [id number] [address] [address] * BASIC METABOLIC PANEL (01/08/2008 10:33 AM JET AIRCRAFT SERVICER) GLUCOSE 96 65 - 99 mg/dL [facility] SODIUM 140 135 - 145 mmol/L [facility] CALCIUM 9.4 8.6 - 10.2 mg/dL [facility] CO2 26 22 - 30 mmol/L [facility] CREATININE 0.90 0.67 - 1.17 mg/dL [facility] POTASSIUM 3.5 3.5 - 4.9 mmol/L [facility] BUN 13 6 - 20 mg/dL [facility] CHLORIDE 103 96 - 108 mmol/L [facility] GFR, >60 >=60 mL/min/1.7 sq meter [facility] GFR >60 >=60 mL/min/1.7 sq meter [facility] Comment: Modification of Diet in Renal Disease (MDRD) study formula. Estimated GFR rate interpretative information for both Americans and non- Americans is available on the [facility] Intranet at: [email or web address] Select: Lab Policies and Procedures Select: Reference Ranges - GFR Blood specimen (specimen) 01/08/2008 10:33 AM JET AIRCRAFT SERVICER 01/08/2008 11:03 AM JET AIRCRAFT SERVICER us Demetrius Anthony MD CHEMISTRY ORDERABLES Edite d Performing Organization Address [facility] de Phone Number INTERFACE SYSTEM Refer to clinic/hospital department [facility] CLIA# [id number] [address] [place] [address] * TYPE AND SCREEN (01/08/2008 10:32 AM JET AIRCRAFT SERVICER) HISTORY CHECK No Historical ABO/Rh [facility] SPECIMEN LIFE 3 days from OR date [facility] ABO/RH TYPE AB Positive [facility] ANTIBODY SCREEN Negative [facility] Blood specimen (specimen) 01/08/2008 10:32 AM JET AIRCRAFT SERVICER us Demetrius Anthony MD BLOOD BANK ORDERABLES Edit ed Performing Organization Address [facility] de Phone Number INTERFACE SYSTEM Refer to clinic/hospital department [facility] CLIA# [id number] [address] [place] [address] documented in this encounter Visit Diagnoses Diagnosis Unspecified disorder of kidney and ureter documented in this encounter Care Teams Sand Molder Relationship Specialty Start Date End Date Raisa Paulino MD [address] [phone] PCP - General Internal Medicine 09/05/17 documented as of this encounter
--- OUTSIDE RECORDS SUMMARY | 2024-07-04 00:53 | XMS_ITS | Encounter Summary ---
Author Organization [facility] Address [address] [place] [address] Care Team Providers Care Content Creation Manager Name Role Phone Raisa Paulino MD Primary Care Provider + Encounter Details Date Type Department Care Team (Latest Contact Info) Description 09/02/2008 Outpatient Historical [facility] [place] [address] [place] [address] Unspecified Disorder of Kidney and Ureter Social History Tobacco Use Types Packs/Day Years Used Date Smoking Tobacco: Never Assessed Sex and Gender Information Value Date Recorded Sex Assigned at Male 11/16/2023 1:33 PM CDT Legal Sex Male 5:38 AM WET ROASTER Gender Identity Male 11/16/2023 1:33 PM CDT Sexual Orientation Straight 11/16/2023 1: 33 PM CDT documented as of this encounter Plan of Treatment Upcoming Encounters Date Type Department Care Team (Late st Contact Info) Description 11/15/2024 9:20 AM CDT Appointment [facility] Laboratory Services [facility] [address] [place] [address] Zahira Scott MD [address] [place] [address] 11/15/2024 10:20 AM CDT Office Visit [facility] Oncology and Hematology [facility] [address] [place] [address] Zahira Scott MD [address] [facility] [address] [place] [address] documented as of this encounter Visit Diagnoses Diagnosis Unspecified disorder of kidney and ureter documented in this encounter Care Teams Content Creation Manager Relationship Specialty Start Date End Date Raisa Paulino MD [address] [facility] [address] [place] [phone] PCP - General Internal Medicine 09/05/17 documented as of this encounter
--- OUTSIDE RECORDS SUMMARY | 2024-07-04 00:53 | XMS_ITS | Encounter Summary ---
Author Organization 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 Social History Tobacco Use Types Packs/Day Years Used Date Smoking Tobacco: Former Cigarettes 0.3 32 0 03/07/1966 - 03/07/1998 Smokeless Tobacco: Never Alcohol Use Standard Drinks/Week Comments Yes 0 (1 standard drink = 0.6 oz pur e alcohol) rarely PHQ-2 Answer Date Recorded Patient Health Questionnaire-2 Score 0 06/15/2023 Sex and Gender Information Value Date Recorded Sex Assigned at Male 08/24/2020 10:48 AM CDT 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 Gender Identity Male 08/24/2020 10:48 AM CDT Sexual Orientation Not on file 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 (HCC) documented in this encounter Results * DERMATOPATHOLOGY (07/21/2023 12:00 AM CDT) Case Report Dermatopathology Report Case: [id number] Authorizing Provider: Mikey Cheema MD Collected: 07/21/2023 12:00 AM Ordering Location: [facility] - Received: 07/22/2023 02:16 PM DermPath Lab Pathologist: Raisa Katz MD Specimens: A) - Skin, left inferior parietal scalp = 11-2 B) - Skin, left inferior parietal scalp = 2-5 C) - Skin, left inferior parietal scalp = 5-8 D) - Skin, left inferior parietal scalp = 8-11 E) - Skin, left inferior parietal scalp = debulk 4 3:32 PM CDT DERMATOPATHOLOGY LABORATORY Final Diagnosis Specimen A. SKIN, left inferior parietal scalp = 11-2: SOLAR ELASTOSIS (L57.8) (see microscopic description) Specimen B. SKIN, left inferior parietal scalp = 2-5: SOLAR ELASTOSIS (L57.8) (see microscopic description) Specimen C. SKIN, left inferior parietal scalp = 5-8: SOLAR ELASTOSIS (L57.8) (see microscopic description) Specimen D. SKIN, left inferior parietal scalp = 8-11: SOLAR ELASTOSIS (L57.8) (see microscopic description) Specimen E. SKIN, left inferior parietal scalp = debulk: DERMAL SCAR RESIDUAL MELANOMA NOT IDENTIFIED (L90.5) (see microscopic description) 4 3:32 PM [facility] DERMAT[facility]ATHOLOGY [facility]ORATORY Clinical History A-E: Malignant melanoma in situ. 4 3:32 PM [facility] DERMATOPATHOLOGY LABORATORY Gross Description Specimen A: Received is one formalin filled container labeled with the patient's name and designated left inferior parietal scalp = 11-2. The specimen consists of a non-oriented ellipse of skin measuring 11x7x5 mm. The epidermal surface is unremarkable. The margin is inked green. The 12 o'clock and 6 o'clock tips are submitted in cassette 1. The remainder of the ellipse is serially sectioned and submitted in cassette 11-2. Jar 0. Specimen B: Received is one formalin filled container labeled with the patient's name and designated left inferior parietal scalp = 2-5. The specimen consists of a non-oriented ellipse of skin measuring 13x8x6 mm. The epidermal surface is unremarkable. The margin is inked green. The 12 o'clock and 6 o'clock tips are submitted in cassette 1. The remainder of the ellipse is serially sectioned and submitted in cassette 2-5. Jar 0. Specimen C: Received is one formalin filled container labeled with the patient's name and designated left inferior parietal scalp = 5-8. The specimen consists of a non-oriented ellipse of skin measuring 12x7x6 mm. The epidermal surface is unremarkable. The margin is inked green. The 12 o'clock and 6 o'clock tips are submitted in cassette 1. The remainder of the ellipse is serially sectioned and submitted in cassette 5-8. Jar 0. Specimen D: Received is one formalin filled container labeled with the patient's name and designated left inferior parietal scalp = 8-11. The specimen consists of a non-oriented ellipse of skin measuring 14x7x6 mm. The epidermal surface is unremarkable. The margin is inked green. The 12 o'clock and 6 o'clock tips are submitted in cassette 1. The remainder of the ellipse is serially sectioned and submitted in cassette 8-11. Jar 0. Specimen E: Received is one formalin filled container labeled with the patient's name and designated left inferior parietal scalp = debulk. The specimen consists of a non-oriented ellipse of skin measuring 9x7x5 mm. The epidermal surface is unremarkable. The margin is inked green. The 12 o'clock and 6 o'clock tips are submitted in cassette 1. The remainder of the ellipse is serially sectioned and submitted in cassette debulk. Jar 0. 4 3:32 PM [facility] DERMATOPATHOLOGY [facility]ORATORY Microscopic Description Specimen A. SKIN, left inferior parietal scalp = 11-2: The specimen exhibits solar elastosis within the dermis. MART-1/Melan-A staining highlights regular periodicity of melanocytes along the dermoepidermal junction. This immunohistochemical stain was performed after the hematoxylin and eosin stain was reviewed to further assess margins for treatment. Specimen B. SKIN, left inferior parietal scalp = 2-5: The specimen exhibits solar elastosis within the dermis. MART-1/Melan-A staining highlights regular periodicity of melanocytes along the dermoepidermal junction. This immunohistochemical stain was performed after the hematoxylin and eosin stain was reviewed to further assess margins for treatment. Specimen C. SKIN, left inferior parietal scalp = 5-8: The specimen exhibits solar elastosis within the dermis. MART-1/Melan-A staining highlights regular periodicity of melanocytes along the dermoepidermal junction. This immunohistochemical stain was performed after the hematoxylin and eosin stain was reviewed to further assess margins for treatment. Specimen D. SKIN, left inferior parietal scalp = 8-11: The specimen exhibits solar elastosis within the dermis. MART-1/Melan-A staining highlights regular periodicity of melanocytes along the dermoepidermal junction. This immunohistochemical stain was performed after the hematoxylin and eosin stain was reviewed to further assess margins for treatment. Specimen E. SKIN, left inferior parietal scalp = debulk: There are fibroblasts and collagen bundles oriented parallel to the skin surface. There are elongated blood vessels, some of which are oriented perpendicular to the skin surface. No residual melanoma is identified on routine sections or on MART-1/MelanA immunostain. This immunohistochemical stain was performed after the hematoxylin and eosin stain was reviewed to further assess margins for treatment. 4 3:32 PM [facility]ERMATOPATHOLOGY [facility]ORATORY Disclaimer An external and internal positive and negative controls are appropriate for the histochemical, immunohistochemical and immunofluorescence stain(s) in this case (if any), except where stated explicitly. The performance characteristics of the stain(s) cited in this report were developed and its performance characteristic determined by the Dermatopathology Laboratory at [facility], directed by Dr. Lizzy Campos. These tests need not be, and therefore are not, approved by the [place] Food and Drug Administration. The tests are used for clinical purposes. Billing Codes Specimen Charges Stain Charges 27016 40510 41460 87218 04338 1 1 1 1 1 68287 12565 71213 59711 20077 1 1 1 1 1 4 3:32 PM CDT DERMATOPATHOLOGY LABORATORY Embedded Images 3:32 PM CDT DERMATOPATHOLOGY LABORATORY Pathology/Cytology TISSUE SPECIMEN FROM SKIN / Unknown 07/21/2023 07/22/2023 2:16 PM CDT Miscellaneous samples (specimen) TISSUE SPECIMEN FROM SKIN / Unknown 07/21/2023 07/25/2023 8:10 AM CDT Miscellaneous samples (specimen) TISSUE SPECIMEN FROM SKIN / Unknown 07/21/2023 07/25/2023 8:10 AM CDT Miscellaneous samples (specimen) TISSUE SPECIMEN FROM SKIN / Unknown 07/21/2023 07/25/2023 8:10 AM CDT Miscellaneous samples (specimen) TISSUE SPECIMEN FROM SKIN / Unknown 07/21/2023 07/25/2023 8:10 AM CDT Mikey Cheema MD LAB - PATHOLOGY/CYTOLOGY ORDERA BLES Final Result DERMATOPATHOLOGY LABORATORY [facility] - Department of Dermatology [facility] Medicine [address] [place] [address], [address] [place] [address], [facility] [phone] documented in this encounter Visit Diagnoses Diagnosis 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 (HCC) Malignant melanoma of skin of scalp and neck documented in this encounter Care Teams Chief Hospital Administrator Relationship Specialty Start Date End Date Raisa Paulino MD [address] [facility] [address] [place] [address] PCP - General Internal Medicine 07/23/16 Raisa Paulino MD [address] [facility] [address] [place] [address] PCP - Attributed-MSSP 06/06/23 Zahira Scott MD [address] [place], [place] [id number] Internal Medicine 01/08/20 Qiana Parsons Care Coordination Specialist Care Management 03/01/24 03/02/24 documented as of this encounter
--- OUTSIDE RECORDS SUMMARY | 2024-07-04 00:53 | XMS_ITS | Encounter Summary ---
Author Organization [facility] Address [address] [facility] [place] [address] Care Team Providers Care Manager Rn Name Role Phone Gerardo Lopez MD Primary Care Provider Unav ailable Jose Angel Holly MD Unavailable [phone] Demetrius Larson MD Unavailable [phone] Nils Franz MD Primary Care Provider Unavailab Raisa Mann MD Primary Care Provider [phone] Raisa Paulino MD Unavailable [phone] Zahira Scott MD Unavailable Raisa Paulino MD Unavailable [phone] Ana Roberts PUBLIC RELATIONS PROFESSIONAL-TOP EXECUTIVE Unavailable Raisa Paulino MD Unavailable [phone] Peterson Gil Unavailable Peterson Gil Unavailable Raisa Paulino MD Unavailable [phone] Qiana Parsons Unavailable [phone] Gerardo Lopez MD Unavailable UnavailNils Cotton MD Unavailable Unavailable Encounter Details Date Type Department Care Team (Late st Contact Info) Description 11/23/2013 [facility] Jose Angel Holly MD [address] [place] [address] Social History Tobacco Use Types Packs/Day Years Used Date Smoking Tobacco: Former Cigarettes 0.3 32 0 03/07/1967 - 03/07/1999 Smokeless Tobacco: Never Alcohol Use Standard Drinks/Week Comments No 0 (1 standard drink = 0.6 oz pur e alcohol) rarely Sex and Gender Information Value Date Recorded Sex Assigned at Male 08/24/2020 10:48 AM CDT 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 Gender Identity Male 08/24/2020 10:48 AM CDT Sexual Orientation Not on file documented as of this encounter Plan of Treatment Upcoming Encounters Date Type Department Care Team (Late st Contact Info) Description 12/04/2024 9:40 AM CDT Office Visit [facility] - Internal Medicine [address] [place] [address] [place] [address] Raisa Paulino MD [address] [place] [address] documented as of this encounter Visit Diagnoses Not on filedocumented in this encounter Additional Health Concerns Infection Onset Date Last Indicated Resolved Time COVID-19 Under Investigation 09/28/2019 09/28/2019 09/29/2019 12:17 PM CDT documented as of this encounter Care Teams Manager Rn Relationship Specialty Start Date End Date Gerardo Lopez MD PCP - General 04/08/09 04/10/14 Nils Franz MD [address] [place] [address] PCP - General Family Medicine 04/11/14 03/06/16 Raisa Paulino MD [address] [place] [address] PCP - General Internal Medicine 07/23/16 Raisa Paulino MD [address] [place] [address] [place] [address] PCP - Attributed-MSSP 12/15/16 06/10/19 Raisa Paulino MD [address] [place] [address] PCP - Attributed-MSSP 03/07/20 1 Ana Roberts, PUBLIC RELATIONS PROFESSIONAL-TOP EXECUTIVE [address] [place] [address] PCP - Attributed-MSSP 03/07/21 2 Raisa Paulino MD [address] [place] [address] PCP - Attributed-MSSP 02/04/22 07/22/22 Raisa Paulino MD [address] [place] [address] PCP - Attributed-MSSP 06/06/23 Gerardo Lopez MD PCP - Attributed-MSSP 08/11/16 09/11/16 Nils Franz MD RETIRED PCP - Attributed-MSSP 09/12/16 12/14/16 Jose Angel Holly MD [address] [place] [address] 10/13/09 01/07/20 Demetrius Larson MD [address] [place] [address] Urology 04/24/12 08/26/20 Zahira Scott MD [address] [place] [address] Internal Medicine 01/08/20 Peterson Gil Care Coordination Specialist Care Management 06/01/23 06/01/23 Peterson Gil Care Coordination Specialist Care Management 06/08/23 06/08/23 Qiana Parsons Care Coordination Specialist Care Management 03/01/24 03/02/24 documented as of this encounter
--- OUTSIDE RECORDS SUMMARY | 2024-07-04 00:53 | XMS_ITS | Encounter Summary ---
Author Organization [facility] Address 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 Gender Identity Male 11/16/2023 1:33 PM CDT Sexual Orientation Straight 11/16/2023 1: 33 PM CDT documented as of this encounter Plan of Treatment Upcoming Encounters Date Type Department Care Team (Late st Contact Info) Description 11/15/2024 9:20 AM CDT Appointment [facility] Laboratory Services [facility] [address] [place] [address] Zahira Scott MD [address] [place] [address] 11/15/2024 10:20 AM CDT Office Visit [facility] Oncology and Hematology [facility] [address] [place] [address] Zahira Scott MD [address] [place] [address] (work) documented as of this encounter Procedures Procedure Name Priority Date/Time Associated Diagnosis Comments CBC WITH DIFFERENTIAL Stat 08/30/2008 8:52 AM CDT COMPREHENSIVE METABOLIC PANEL Stat 08/30/2008 8:52 AM CDT documented in this encounter Results * (ABNORMAL) COMPREHENSIVE METABOLIC PANEL (08/30/2008 8:52 AM CDT) POTASSIUM 4.2 3.5 - 4.9 mmol/L [facility] BILIRUBIN TOTAL 0.3 0.2 - 1.0 mg/dL [facility] BUN 12 6 - 20 mg/dL [facility] GLUCOSE 95 65 - 99 mg/dL [facility] TOTAL PROTEIN 6.9 6.3 - 8.6 g/dL [facility] ALKALINE PHOSPHATASE 64 40 - 129 U/L [facility] CHLORIDE 103 96 - 108 mmol/L [facility] CALCIUM 8.9 8.6 - 10.2 mg/dL [facility] SODIUM 137 135 - 145 mmol/L [facility] ALBUMIN 4.2 3.4 - 4.8 g/dL [facility] CREATININE 0.96 0.67 - 1.17 mg/dL [facility] AST 37 12 - 38 U/L [facility] CO2 23 22 - 30 mmol/L [facility] ALT 93(H) 0 - 41 U/L [facility] GFR, >60 >=60 mL/min/1.7 sq meter [facility] GFR >60 >=60 mL/min/1.7 sq meter [facility] Comment: Modification of Diet in Renal Disease (MDRD) study formula. Estimated GFR rate interpretative information for both Americans and non- Americans is available on the [facility] Intranet at: [email or web address] Select: Lab Policies and Procedures Select: Reference Ranges - GFR 08/30/2008 8:52 AM CDT 08/30/2008 8:56 AM CDT Cristian Scott CHEMISTRY ORDERABLES Edited INTERFACE SYSTEM Refer to clinic/hospital department [facility] CLIA# [id number] [address] [place], [place] [address] * CBC WITH DIFFERENTIAL (08/30/2008 8:52 AM CDT) MPV 9.7 9.3 - 12.4 fL [facility] HEMATOCRIT 44.5 40.0 - 48.0 % [facility] RDW-STDEV 46.0 37.1 - 48.7 fL [facility] RBC 4.78 4.50 - 5.40 M/uL [facility] MCHC 35.1 31.5 - 35.5 % [facility] MCV 93.1 82.0 - 99.0 fL [facility] PLATELETS 218 140 - 350 K/uL [facility] HEMOGLOBIN 15.6 13.6 - 16.5 g/dL [facility] RDW 13.4 11.5 - 14.5 % [facility] WBC 8.0 4.0 - 9.8 K/uL [facility] MCH 32.6 27.2 - 32.6 pg [facility] BASOPHILS 1 0 - 2 % [facility] BASOPHILS ABSOLUTE 0.04 0.00 - 0.20 K/uL [facility] MONOCYTES 8 3 - 13 % [facility] MONOCYTE ABSOLUTE 0.64 0.10 - 1.30 K/uL [facility] NEUTROPHILS 54 45 - 70 % [facility] NEUTROPHIL ABSOLUTE 4.34 1.90 - 7.00 K/uL [facility] EOSINOPHILS 4 0 - 7 % [facility] EOSINOPHIL ABSOLUTE 0.33 0.00 - 0.70 K/uL [facility] LYMPHOCYTES 33 16 - 45 % [facility] LYMPHOCYTE ABSOLUTE 2.65 0.70 - 4.50 K/uL [facility] 08/30/2008 8:52 AM CDT 08/30/2008 8:56 AM CDT Hsiaoou Hu HEMATOLOGY ORDERABLES Edited INTERFACE SYSTEM Refer to clinic/hospital department [facility] CLIA# [id number] [address] [place] [address] documented in this encounter Visit Diagnoses Diagnosis Malignant neoplasm of kidney, except pelvis (CMS/HCC) Malignant neoplasm of kidney, except pelvis documented in this encounter Care Teams Sales And Catering Coordinator Relationship Specialty Start Date End Date Raisa Paulino MD [address] [facility] [address] [place] [address] PCP - General Internal Medicine 09/05/17 documented as of this encounter
--- OUTSIDE RECORDS SUMMARY | 2024-07-04 00:53 | XMS_ITS | Referral Summary ---
Author Organization [facility] Address [address] [place] [address] Care Team Providers Care Patient Sitter Name Role Phone Raisa Paulino MD Primary Care Provider + CouVidal skelton MD Unavailable [phone] Allergies Active Allergy Reactions Criticality Noted Date Comments Adhesive Tape-Silicones Rash Medium 06/27/2015 Lisinopril Angioedema High 09/08/2018 Penicillins Rash Medium 09/08/2018 Medications aspirin 325 mg tabletIndicatio ns:[place] with 2 stents Take 325 mg by [...] (03/19/2021): Added automatically from request for surgery [id number] Social History Tobacco Use Types Packs/Day Years [...] on file 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 Gender Identity Male 03/10/2021 8:27 AM 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 Sexual Orientation Straight 03/10/2021 8: 27 AM 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 Last Filed Vital Signs Vital Sign Reading Time Taken Comments Blood Pressure 115/59 03/27/2021 7:59 AM 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 Pulse 65 03/27/2021 7:59 AM 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 Temperature 36 C (96.8 F) 03/27/2021 6:38 AM 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 Respiratory Rate 17 03/27/2021 7:59 AM 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 Oxygen Saturation 94% 03/27/2021 7:59 AM 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 Inhaled Oxygen Concentration - - Weight 102.1 kg (225 lb) 03/27/2021 6:38 AM 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 Height 177.8 cm (5' 10 ) 03/27/2021 6:38 AM 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 Body Mass Index 32.28 03/27/2021 6:38 AM 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 Plan of Treatment Not on file Medical Devices Implanted Type Area Shallot Cleaner Device Identifier Shelf Expiration Date Model / Serial / Lot Coronary Stents N/A: Heart Insurance MEDICARE Dasher MEDICARE Dasher Care Teams Patient Sitter Relationship Specialty Start Date End Date Raisa Paulino MD [address] [facility] [address] [place] [address] PCP - General Internal Medicine 03/17/21 Vidal Henry MD [address] [facility] [address] [place] [address] Surgeon Ophthalmology 03/27/21
--- OUTSIDE RECORDS SUMMARY | 2024-07-04 00:54 | XMS_ITS | Continuity of Care Document ---
Author Name [facility] Organization [facility] Care Team Providers Care Exchange Engineer Name Role Phone [facility] Unavailable Unavailable Medications Combined list of outpatient medications from Department of Defense and Veterans Affairs facilities.Medications provided include 1) outpatient medications from the last 15 months, and 2) patient-reported medications. Medication Details Route Status Patient Instructions Prescription Expires Prescription Number Last Dispense Date Ordering Provider Order Date Order Qty Source ALBUTEROL SULFATE HFA (albuterol sulfate), 90 MCG, HFA AER AD, INHALATION, [employer] [place], 8.5 g CANISTER Active [id number] 4 2023 8.5 Pharmac y Data Transac tion Service Facilit y ALBUTEROL SULFATE HFA (albuterol sulfate), 90 MCG, HFA AER AD, INHALATION, [place], 8.5 g CANISTER Active [id number] 4 2023 8.5 Pharmac y Data Transac tion Service Facilit y LOSARTAN POTASSIUM (losartan potassium), 25 MG, TABLET, ORAL, [employer], 1000 ea. BOTTLE Cancele d [id number] : 2023 0 Pharmac y Data Transac tion Service Facilit y LOSARTAN POTASSIUM (losartan potassium), 25 MG, TABLET, ORAL, [employer], 1000 ea. BOTTLE Cancele d [id number] 4 [id number] : 2023 0 Pharmac y Data Transac tion Service Facilit y LOSARTAN POTASSIUM (losartan potassium), 25 MG, TABLET, ORAL, [employer], 1000 ea. BOTTLE Active [id number] 4 2023 45 Pharmac y Data Transac tion Service Facilit y LOSARTAN POTASSIUM (losartan potassium), 25 MG, TABLET, ORAL, [employer], 1000 ea. BOTTLE Active [id number] 4 2023 45 Pharmac y Data Transac tion Service Facilit y METHOCARBAM OL (methocarba mol), 750 MG, TABLET, ORAL, [employer] 500 ea. BOTTLE Active [id number] 4 2023 90 Pharmac y Data Transac tion Service Facilit y ROSUVASTATI N CALCIUM (rosuvastat in calcium), 20 MG, TABLET, ORAL, [employer], 90 ea. BOTTLE Cancele d [id number] 4 [id number] : 2023 0 Pharmac y Data Transac tion Service Facilit y ROSUVASTATI N CALCIUM (rosuvastat in calcium), 20 MG, TABLET, ORAL, [employer], 90 ea. BOTTLE Active [id number] 4 2023 90 Pharmac y Data Transac tion Service Facilit y ROSUVASTATI N CALCIUM (rosuvastat in calcium), 20 MG, TABLET, ORAL, [employer] 1000 ea. BOTTLE Cancele d [id number] 4 [id number] : 2023 0 Pharmac y Data Transac tion Service Facilit y ROSUVASTATI N CALCIUM (rosuvastat in calcium), 20 MG, TABLET, ORAL, [employer] 1000 ea. BOTTLE Active [id number] 4 2023 90 Pharmac y Data Transac tion Service Facilit y Immunizations Combined list of available immunizations from the Department of Defense and Veterans Affairs facilities. 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 (MOD) Not Given COVID-19, mRNA, LNP-S, PF, 100 mcg or 50 mcg dose DoD Influenza vaccine, quadrivalent, adjuvanted 2020 BOWLES, () Not Given Influenza vaccine, quadrival ent, adjuvante d DoD influenza, high-dose, quadrivalent 2020 BOWLES, () Not Given influenza , high-dose , quadrival ent DoD Social History Combined list of available smoking, tobacco, and other social history from Department of Defense and Veterans Affairs facilities. Social History Type Response Date Comment Sour e This section is an empty social history section. DoD
[2024-07-04 10:30] VITALS: BP 152/78; PULSE 72; RESP 20; TEMP 36.6; O2SAT 96; BMI 32.7
[2024-07-04] MEDS: LACTATED RINGERS 1,000 ML 150 ML IV CONT (10:35)
--- NOTE | 2024-07-04 10:59 | P.PNAN_ITS ---
Anes - Initial Pre Proc Eval Procedure: Operation Date: 07/04/24 11:30 Proposed Procedures p Colonoscopy - Feroz Cm MD Date/Time: 07/04/24 10:59 Surgeon: Feroz Cm MD Pre Op Diagnosis: hx of colon polyps Patient Data Age: 78 Gender: M Height: 1.78 m Weight: 103.4 kg Last Vital Signs Temp 97.8 F 07/04/24 10:30 Pulse 72 07/04/24 10:30 Resp 20 07/04/24 10:30 BP 152/78 H 07/04/24 10:30 Pulse Ox 96 07/04/24 10:30 O2 Del Method Room Air 07/04/24 10:30 Allergies Allergy/AdvReac Type Severity Reaction Status Date / Time Penicillins Allergy Mild Other Verified 07/04/24 10:27 lisinopril Allergy Unknown Anaphylactic Verified 07/04/24 10:27 Shock Home Medications ?Medication ?Instructions ?Recorded ?Confirmed ?Type albuterol sulfate 90 mcg/actuation 2 inh inhalation DAILY 02/24/24 07/04/24 History aerosol inhaler aspirin 81 mg tablet,delayed 81 mg PO DAILY 02/24/24 07/04/24 History release (Adult Aspirin Regimen) cetirizine 10 mg tablet (24Hour 10 mg PO DAILY PRN seasonal 02/24/24 07/04/24 History Allergy) allergies ergocalciferol (vitamin D2) 1,250 1,250 mcg PO MONTHLY 02/24/24 07/04/24 History mcg (50,000 unit) capsule losartan 25 mg tablet 12.5 mg PO QHS 02/24/24 07/04/24 History methocarbamol 750 mg tablet 750 mg PO DAILY PRN pain 02/24/24 07/04/24 History rosuvastatin 20 mg tablet 20 mg PO DAILY 02/24/24 07/04/24 History C 250 mg-E 137.5 mg-zinc 12.5 1 tablet PO BID 02/25/24 07/04/24 History lf-onyjnv-vjhnu-sesdkk-txvx-uhzr capsule ([place] Advanced AREDS2) Patient hx anesthesia problems: none Family hx anesthesia problems: none Results Review: All pre-operative results and documents have been reviewed as part of the pre- operative evaluation. PMFSH Social History Social History Years smoked: 20 Smoking status: Former smoker Tobacco type: cigarettes Smoking end date: 03/07/98 Additional smoking assessment comments: 1 pack per week Alcohol intake: current Substance use: never Substance use type: does not use Do You Feel Safe in your Home?: Yes Lack of Transportation: No Lack of Food: Never True Current Housing: I Have Housing Concerned About Future Housing: No Difficulty Paying Gas/Electric Bills: No Difficulty Paying for Meds: No Currently Unemployed: No Education: Decline to Answer Difficulty w/ Childcare or Family Care: No Living arrangements: with family Spiritual care concerns: No Anes - Eval Final PreProcedure Day of Procedure 07/04/24 10:59 Patient weight: normal Heart: regular rate and rhythm Lungs: clear to auscultation Airway: Mallampati scale class II Neurological: alert and oriented Last oral intake: >/= 8 hours ASA classification: III Emergent: no Anesthetic plan: proceed Anesthesia type and monitoring: general GIVS and standard monitoring Results Review: All pre-operative results and documents have been reviewed as part of the pre- operative evaluation. Informed Consent: The patient's anesthetic plan and its attendant risks and benefits were discussed with the patient/family/POA. Questions were solicited and answers provided to the satisfaction of the patient/family/POA.
--- NOTE | 2024-07-04 11:29 | P.HP_ITS ---
H&P: HPI History of Present Illness Date/Time: 07/04/24 11:29 Chief Complaint: History of colon polyps Narrative: The patient has a history of colonic polyps, the last colonoscopy was 6 years ago. Review of Systems Review of Systems: All systems reviewed & are unremarkable except as noted in HPI and below PMFSH Social History Social History Years smoked: 20 Smoking status: Former smoker Tobacco type: cigarettes Smoking end date: 03/07/98 Additional smoking assessment comments: 1 pack per week Alcohol intake: current Substance use: never Substance use type: does not use Do You Feel Safe in your Home?: Yes Lack of Transportation: No Lack of Food: Never True Current Housing: I Have Housing Concerned About Future Housing: No Difficulty Paying Gas/Electric Bills: No Difficulty Paying for Meds: No Currently Unemployed: No Education: Decline to Answer Difficulty w/ Childcare or Family Care: No Living arrangements: with family Spiritual care concerns: No Meds Home Medications and Allergies Home Medications ?Medication ?Instructions ?Recorded ?Confirmed ?Type albuterol sulfate 90 mcg/actuation 2 inh inhalation DAILY 02/24/24 07/04/24 History aerosol inhaler aspirin 81 mg tablet,delayed 81 mg PO DAILY 02/24/24 07/04/24 History release (Adult Aspirin Regimen) cetirizine 10 mg tablet (24Hour 10 mg PO DAILY PRN seasonal 02/24/24 07/04/24 History Allergy) allergies ergocalciferol (vitamin D2) 1,250 1,250 mcg PO MONTHLY 02/24/24 07/04/24 History mcg (50,000 unit) capsule losartan 25 mg tablet 12.5 mg PO QHS 02/24/24 07/04/24 History methocarbamol 750 mg tablet 750 mg PO DAILY PRN pain 02/24/24 07/04/24 History rosuvastatin 20 mg tablet 20 mg PO DAILY 02/24/24 07/04/24 History C 250 mg-E 137.5 mg-zinc 12.5 1 tablet PO BID 02/25/24 07/04/24 History ox-ytfhca-kvcjk-onuzku-yljm-bsvk capsule ([place] Advanced AREDS2) Allergies Allergy/AdvReac Type Severity Reaction Status Date / Time Penicillins Allergy Mild Other Verified 07/04/24 10:27 lisinopril Allergy Unknown Anaphylactic Verified 07/04/24 10:27 Shock Vital Signs Vital Signs - 24 hr 07/04/24 10:30 Temperature 97.8 F Pulse Rate 72 Respiratory Rate 20 Blood Pressure 152/78 H Pulse Oximetry 96 Oxygen Delivery Room Air Exam Const: General: cooperative and healthy appearing Resp: Effort & Inspection: normal respiratory effort and able to speak in complete sentences Auscultation: clear to auscultation bilaterally Cardio: Rate: regular rate Rhythm: regular rhythm GI: Inspection: normal to inspection GI Palp: No No hepatosplenomegaly present Auscultation: normal bowel sounds Rectal Exam: deferred Skin: General skin exam: normal color Psych: Appearance: grossly normal Mental Status: mental status grossly normal Assessment and Plan Assessment and plan (1) History of colonic polyps: Code(s): Z86.0100 - Personal history of colon polyps, unspecified Status: Acute Assessment and Plan: The patient is deemed a good candidate for the procedure. Consent signed. Will proceed.
[2024-07-04 11:56] VITALS: BP 119/73; PULSE 62; RESP 17; O2SAT 96
[2024-07-04 12:06] VITALS: BP 115/66; PULSE 60; RESP 18; O2SAT 96
[2024-07-04 12:16] VITALS: BP 130/68; PULSE 65; RESP 18; O2SAT 96
== END 2024-07-04 12:29 | disposition home or self-care (01) ==
PROVIDERS: Visit Provider Internal Medicine Gastroenterology
PROC: 0DJD8ZZ Inspection of Lower Intestinal Tract, Via Natural or Artificial Opening Endoscopic (ICD-10-PCS; CPT 45378; principal; 2024-07-04 11:30)
DX: Z12.11 Encounter for screening for malignant neoplasm of colon (principal); K63.5 Polyp of colon; K64.8 Other hemorrhoids; K57.30 Diverticulosis of large intestine without perforation or abscess without bleeding; Z79.51 Long term (current) use of inhaled steroids; Z79.82 Long term (current) use of aspirin; Z87.891 Personal history of nicotine dependence
CPT/HCPCS: 45385; 88305; J2704; J7120